=== PATIENT | female | born 1960 | race Caucasian/White ===

== ENCOUNTER 2016-06-04 08:46 | Outpatient (CLI) | payer OTHER ==
[~2016-06-04 08:46] MED LIST changes: +diphenhydrAMINE 25 MG CAP PO SCH
[2016-06-04] MEDS ORDERED: inFLIXimab INJECTION 600 MG in NS 190 ML IV ONE (09:00)
[2016-06-04] MEDS ORDERED: NS 1,000 ML IV SCH (09:00)
== END 2016-06-04 11:45 | disposition home or self-care (01) ==
LOC: M INFU 08:46
PROVIDERS: ATTEND Internal Medicine Gastroenterology
DX: K51.90 Ulcerative colitis, unspecified, without complications (principal); I10 Essential (primary) hypertension; E78.5 Hyperlipidemia, unspecified; E07.9 Disorder of thyroid, unspecified; M19.90 Unspecified osteoarthritis, unspecified site; Z79.82 Long term (current) use of aspirin; Z88.0 Allergy status to penicillin; Z91.013 Allergy to seafood; Z91.010 Allergy to peanuts; Z79.899 Other long term (current) drug therapy; Z87.891 Personal history of nicotine dependence
CPT/HCPCS: 96413; 96415; J1745

== ENCOUNTER → 2016-06-04 | Outpatient (CLI) | payer OTHER ==
[~2016-06-04] MED LIST: /MIRT15TA OR; ASPI81TA45 OR; HYOSCYAMINE PO; LISI10TA2 PO; PROCTOFOAM HC; SIMV40TA2 OR; SYNT175T OR; ZOLO100T OR; lialda PO
--- NOTE | 2016-06-04 15:16 | REPMRS ---
Patient History The patient states she has not had a clinical breast exam in over a year. Patient is postmenopausal. No known family history of cancer. Took hormonal contraceptives for 6 months. Digital Woman Screen Mammo: June 04, 2016 - Exam #: [id number] Bilateral CC and MLO view(s) were taken. Technologist: Aurora Bishop, Technologist Prior study comparison: October 18, 2014, digital woman screen mammo performed at [facility]. August 19, 2013, bilateral bilat screen digital mammo, performed at [facility] FINDINGS: There are scattered fibroglandular densities. There has been no change in the appearance of the mammogram from the prior studies. There is a mild amount of residual fibroglandular tissue which is fairly symmetric. There is no interval development of dominant mass, architectural distortion, or clustered microcalcification suggestive of malignancy. ASSESSMENT: BI-RADS/ACR category 1 mammogram. Negative. Recommendation Routine screening mammogram in 1 year (for women over age 40). This mammogram was interpreted with the aid of an FDA-approved computer-aided dectection system. Electronically Signed By: Oscar Baird MD 06/04/16 2288
== END ==
LOC: M WHC 14:28
PROVIDERS: ATTEND Internal Medicine
DX: Z12.39 Encounter for other screening for malignant neoplasm of breast (principal); Z78.0 Asymptomatic menopausal state

== ENCOUNTER 2016-07-30 09:08 | Outpatient (CLI) | payer OTHER ==
[~2016-07-30] VITALS: Ht 154.9 cm; Wt 106.6 kg
[2016-07-30] MEDS ORDERED: inFLIXimab INJECTION 600 MG in NS 190 ML IV ONE (10:00)
[2016-07-30] MEDS ORDERED: NS 1,000 ML IV SCH (10:00)
== END 2016-07-30 12:10 | disposition home or self-care (01) ==
LOC: M INFU 09:08
PROVIDERS: ATTEND Internal Medicine Gastroenterology
DX: K51.90 Ulcerative colitis, unspecified, without complications (principal); I10 Essential (primary) hypertension; E78.5 Hyperlipidemia, unspecified; Z88.0 Allergy status to penicillin; Z91.018 Allergy to other foods; Z91.013 Allergy to seafood; Z87.891 Personal history of nicotine dependence; Z79.899 Other long term (current) drug therapy; E07.9 Disorder of thyroid, unspecified; Z79.82 Long term (current) use of aspirin
CPT/HCPCS: 96413; 96415; J1745

== ENCOUNTER → 2016-08-20 | Outpatient (REF) | payer OTHER ==
[~2016-08-20] MED LIST changes: -diphenhydrAMINE 25 MG CAP PO SCH
== END ==
LOC: M SFHCPLAZ 15:04
PROVIDERS: ATTEND Internal Medicine
DX: J02.8 Acute pharyngitis due to other specified organisms (principal)

== ENCOUNTER 2016-09-24 09:01 | Outpatient (CLI) | payer OTHER ==
[~2016-09-24] VITALS: Ht 154.9 cm; Wt 106.6 kg
[~2016-09-24 09:01] MED LIST changes: +diphenhydrAMINE 25 MG CAP PO SCH
[2016-09-24] MEDS ORDERED: NS 1,000 ML IV SCH (09:15)
[2016-09-24] MEDS ORDERED: inFLIXimab INJECTION 600 MG in NS 190 ML IV ONE (09:15)
[2016-09-24 09:33] LABS: MEAN CORPUSCULAR HEMOGLOBIN 29.7 pg (27.0-33.0); MEAN CORPUSCULAR HGB CONC 33.9 g/dl (32.0-36.5); MEAN CORPUSCULAR VOLUME 87.5 fl (80.0-96.0); RED CELL DISTRIBUTION WIDTH 13.2 % (11.5-14.5); WHITE BLOOD COUNT 5.5 K/mm3 (4.0-10.0)
[2016-09-24 10:37] LABS: ALBUMIN 3.7 GM/DL (3.2-5.2); ALKALINE PHOSPHATASE 90 U/L (45-117); ALT/SGPT 27 U/L (12-78); ANION GAP 6 MEQ/L (8-16); AST/SGOT 22 U/L (15-37); BILIRUBIN,TOTAL 0.4 MG/DL (0.2-1.0); BLOOD UREA NITROGEN 17 MG/DL (7-18); CALCIUM LEVEL 8.9 MG/DL (8.5-10.1); CARBON DIOXIDE LEVEL 30 MEQ/L (21-32); CHLORIDE LEVEL 105 MEQ/L (98-107); CHOLESTEROL LEVEL 172 MG/DL (<200); CREATININE FOR GFR 0.78 MG/DL (0.55-1.02); GLOMERULAR FILTRATION RATE > 60.0 (>51); GLUCOSE, FASTING 97 MG/DL (70-105); POTASSIUM SERUM 3.9 MEQ/L (3.5-5.1); SODIUM LEVEL 141 MEQ/L (136-145); TOTAL PROTEIN 7.4 GM/DL (6.4-8.2); TRIGLYCERIDES LEVEL 135 MG/DL (<150)
== END 2016-09-24 11:45 | disposition home or self-care (01) ==
LOC: M INFU 09:01
PROVIDERS: ATTEND Internal Medicine Gastroenterology
DX: K51.90 Ulcerative colitis, unspecified, without complications (principal); E78.00 Pure hypercholesterolemia, unspecified; E03.9 Hypothyroidism, unspecified; M06.9 Rheumatoid arthritis, unspecified; F32.9 Major depressive disorder, single episode, unspecified; Z87.891 Personal history of nicotine dependence; Z88.0 Allergy status to penicillin; Z91.013 Allergy to seafood; Z91.018 Allergy to other foods; Z79.899 Other long term (current) drug therapy; Z79.82 Long term (current) use of aspirin; Z80.0 Family history of malignant neoplasm of digestive organs
CPT/HCPCS: 36415; 80053; 80061; 84443; 85027; 96413; 96415; J1745

== ENCOUNTER 2016-11-19 08:56 | Outpatient (CLI) | payer OTHER ==
[~2016-11-19] VITALS: Ht 154.9 cm; Wt 105.7 kg
[2016-11-19] MEDS ORDERED: inFLIXimab INJECTION 600 MG in NS 190 ML IV ONE (09:15)
[2016-11-19] MEDS ORDERED: NS 1,000 ML IV SCH (09:15)
[2016-11-22] MEDS ORDERED: MIRT30TA3 PO (13:40)
[2016-11-22] MEDS ORDERED: ATOR80TA59 PO (13:40)
[2016-11-22] MEDS ORDERED: SERT-138 PO (13:40)
[2016-11-22] MEDS ORDERED: SYNT175T2 PO (13:40)
[2016-11-22] MEDS ORDERED: ASPI1TAB PO (13:40)
[2016-11-22] MEDS ORDERED: FURO20TA2 PO (13:40)
[2016-11-22] MEDS ORDERED: INFL10VL IV (13:40)
[2016-11-22] MEDS ORDERED: MULT1TAB10 PO (13:46)
[2016-11-22] MEDS ORDERED: LISI20TA3 PO (13:46)
== END 2016-11-19 12:00 | disposition home or self-care (01) ==
LOC: M INFU 08:56
PROVIDERS: ATTEND Internal Medicine Gastroenterology
DX: K51.90 Ulcerative colitis, unspecified, without complications (principal); Z87.891 Personal history of nicotine dependence; Z88.0 Allergy status to penicillin; Z91.013 Allergy to seafood; Z91.018 Allergy to other foods; Z79.82 Long term (current) use of aspirin; Z79.899 Other long term (current) drug therapy
CPT/HCPCS: 96413; 96415; J1745

== ENCOUNTER 2016-11-23 12:19 | Outpatient (CLI) | payer OTHER ==
[~2016-11-23] VITALS: Ht 154.9 cm; Wt 90.7 kg
[~2016-11-23 12:19] MED LIST changes: +ASPI1TAB PO; +ATOR80TA59 PO; +FURO20TA2 PO; +INFL10VL IV; +LISI20TA3 PO; +MIRT30TA3 PO; +MULT1TAB10 PO; +NS 1,000 ML IV SCH; +SERT-138 PO; +SYNT175T2 PO; -diphenhydrAMINE 25 MG CAP PO SCH
[2016-11-23] MEDS ORDERED: LIDOCAINE 2% INJ 100 MG/5 ML SDV (FOR ANES.) As Ordered ONE (13:32)
[2016-11-23] MEDS ORDERED: PROPOFOL 200 MG/20 ML VIAL As Ordered ONE (13:32)
[2016-11-23] MEDS ORDERED: fentaNYL 100 MCG/2 ML INJECTION (J3010) As Ordered ONE (13:33)
--- NOTE | 2016-11-23 13:44 | ROOR ---
Patient Name: Dorene Greene Procedure Date: 11/23/2016 1:33 PM Date of : 1960 Age: 56 Room: [facility] Gender: Female Note Status: Finalized Procedure: Upper GI endoscopy Indications: Dysphagia, Heartburn Providers: Andrea JOSHUA MD Referring MD: Adrian Kemp MD Requesting Provider: Medicines: Monitored Anesthesia Care Complications: No immediate complications. Procedure: Pre-Anesthesia Assessment: - The heart rate, respiratory rate, oxygen saturations, blood pressure, adequacy of pulmonary ventilation, and response to care were monitored throughout the procedure. The Endoscope was introduced through the mouth, and advanced to the second part of duodenum. The upper GI endoscopy was accomplished without difficulty. The patient tolerated the procedure well. Findings: Very small (insignificant) Hiatal Hernia. The esophagus was normal. The stomach was normal. The examined duodenum was normal. Impression: - Very small (insignificant) Hiatal Hernia. - Normal esophagus. - Normal stomach. - Normal examined duodenum. - No specimens collected. Recommendation: - Follow an antireflux regimen. - Your difficult swallowing may well be related to acid reflux. Consider trial on reflux medications. Let us know. Andrea Joshua MD Andrea JOSHUA MD 11/23/2016 1:44:18 PM This report has been signed electronically. Number of Addenda: 0 Note Initiated On: 11/23/2016 1:33 PM Estimated Blood Loss: Estimated blood loss: none.
--- NOTE | 2016-11-23 14:07 | ROOR ---
Patient Name: Dorene Greene Procedure Date: 11/23/2016 1:34 PM Date of : 1960 Age: 56 Room: [facility] Gender: Female Note Status: Finalized Procedure: Colonoscopy Indications: High risk colon cancer surveillance: Ulcerative left sided colitis Providers: Andrea JOSHUA MD Referring MD: Adrian Kemp MD Requesting Provider: Medicines: Monitored Anesthesia Care Complications: No immediate complications. Procedure: Pre-Anesthesia Assessment: - The heart rate, respiratory rate, oxygen saturations, blood pressure, adequacy of pulmonary ventilation, and response to care were monitored throughout the procedure. The Colonoscope was introduced through the anus and advanced to the cecum, identified by appendiceal orifice and ileocecal valve. The colonoscopy was performed without difficulty. The patient tolerated the procedure well. The quality of the bowel preparation was good. Findings: The perianal and digital rectal examinations were normal. The entire examined colon appeared normal on direct and retroflexion views. Four biopsies were taken every 10 cm with a cold forceps from the entire colon for dysplasia surveillance and ulcerative colitis surveillance. These biopsy specimens were sent to Pathology. Impression: - The entire examined colon is normal on direct and retroflexion views. - Biopsies for surveillance were taken from the entire colon. - No active ulcerative colitis is seen. Recommendation: - Telephone endoscopist for pathology results in 2 weeks. - Continue present medications. Andrea Joshua MD Andrea JOSHUA MD 11/23/2016 2:07:17 PM This report has been signed electronically. Number of Addenda: 0 Note Initiated On: 11/23/2016 1:34 PM Estimated Blood Loss: Estimated blood loss: none.
[2016-11-23 14:20] VITALS: BP 144/88
== END 2016-11-23 14:35 | disposition home or self-care (01) ==
LOC: M OPP 12:19
PROVIDERS: ATTEND Internal Medicine Gastroenterology
DX: Z12.11 Encounter for screening for malignant neoplasm of colon (principal); K51.50 Left sided colitis without complications; R13.10 Dysphagia, unspecified; R12 Heartburn; K44.9 Diaphragmatic hernia without obstruction or gangrene; I10 Essential (primary) hypertension; E78.00 Pure hypercholesterolemia, unspecified; E03.9 Hypothyroidism, unspecified; M06.9 Rheumatoid arthritis, unspecified; K51.00 Ulcerative (chronic) pancolitis without complications; F41.9 Anxiety disorder, unspecified; F32.9 Major depressive disorder, single episode, unspecified; R06.83 Snoring; Z87.891 Personal history of nicotine dependence; Z88.0 Allergy status to penicillin; Z91.013 Allergy to seafood; Z91.010 Allergy to peanuts; Z79.82 Long term (current) use of aspirin; Z79.899 Other long term (current) drug therapy
CPT/HCPCS: 43235; 45380; 88305; J3010

== ENCOUNTER 2017-01-07 08:51 | Outpatient (CLI) | payer OTHER ==
[~2017-01-07 08:51] MED LIST changes: -NS 1,000 ML IV SCH
[2017-01-07] MEDS ORDERED: diphenhydrAMINE 25 MG CAP PO ONE (09:15)
[2017-01-07] MEDS ORDERED: NS 1,000 ML IV SCH (09:15)
[2017-01-07] MEDS ORDERED: inFLIXimab INJECTION 600 MG in NS 190 ML IV ONE (09:30)
== END 2017-01-07 11:45 | disposition home or self-care (01) ==
LOC: M INFU 08:51
PROVIDERS: ATTEND Internal Medicine Gastroenterology
DX: K51.90 Ulcerative colitis, unspecified, without complications (principal); Z87.891 Personal history of nicotine dependence; Z88.0 Allergy status to penicillin; Z91.010 Allergy to peanuts; Z91.013 Allergy to seafood; Z79.82 Long term (current) use of aspirin; Z79.899 Other long term (current) drug therapy
CPT/HCPCS: 96413; 96415; J1745

== ENCOUNTER 2017-03-04 08:44 | Outpatient (CLI) | payer OTHER ==
[~2017-03-04] VITALS: Ht 154.9 cm; Wt 110.0 kg
[2017-03-04] MEDS ORDERED: inFLIXimab INJECTION 600 MG in NS 190 ML IV ONE (09:00)
[2017-03-04] MEDS ORDERED: NS 1,000 ML IV SCH (09:00)
[2017-03-04] MEDS ORDERED: diphenhydrAMINE 25 MG CAP PO ONE (09:00)
== END 2017-03-04 12:05 | disposition home or self-care (01) ==
LOC: M INFU 08:44
PROVIDERS: ATTEND Internal Medicine Gastroenterology
DX: K51.90 Ulcerative colitis, unspecified, without complications (principal); Z79.82 Long term (current) use of aspirin; Z79.899 Other long term (current) drug therapy; Z88.0 Allergy status to penicillin; Z91.013 Allergy to seafood; Z91.010 Allergy to peanuts
CPT/HCPCS: 96413; 96415; J1745

== ENCOUNTER 2017-06-24 12:10 | Outpatient (CLI) | payer OTHER ==
[2017-06-24] MEDS: ACETAMINOPHEN TAB 650MG DOSE (2X325MG) PO (09:15)
[2017-06-24] MEDS: diphenhydrAMINE 25 MG CAP PO (12:25)
[2017-06-24] MEDS: NS 1,000 ML IV (12:26)
[2017-06-24] MEDS: INFLIXIMAB BIOSIMILAR 600 MG in NS 190 ML IV (12:33)
== END 2017-06-24 14:50 | disposition home or self-care (01) ==
LOC: M INFU 12:10
DX: K51.919 Ulcerative colitis, unspecified with unspecified complications (principal); Z79.82 Long term (current) use of aspirin; Z79.899 Other long term (current) drug therapy; Z88.0 Allergy status to penicillin; Z91.013 Allergy to seafood; Z91.010 Allergy to peanuts; Z87.891 Personal history of nicotine dependence
CPT/HCPCS: Q5102

== ENCOUNTER → 2017-08-14 | Outpatient (CLI) | payer OTHER | LOC: M WHC 10:44 | DX: Z12.31 Encounter for screening mammogram for malignant neoplasm of breast (principal) | CPT/HCPCS: 77067 ==

== ENCOUNTER 2017-08-19 11:25 | Outpatient (CLI) | payer OTHER ==
[2017-08-19] MEDS: ACETAMINOPHEN 650 MG PO PO (11:45)
[2017-08-19] MEDS: FILTER 1.2 MICRON (ADULT TPN/MANNITOL/REMICADE) XX (11:45)
[2017-08-19] MEDS: diphenhydrAMINE 25 MG CAP PO (11:54)
[2017-08-19] MEDS: NS 1,000 ML IV (12:16)
[2017-08-19] MEDS: inFLIXimab INJECTION 600 MG in NS 190 ML IV (12:17)
== END 2017-08-19 14:45 | disposition home or self-care (01) ==
LOC: M INFU 11:25
DX: K51.90 Ulcerative colitis, unspecified, without complications (principal); Z88.2 Allergy status to sulfonamides; Z91.013 Allergy to seafood; Z91.010 Allergy to peanuts; Z79.82 Long term (current) use of aspirin; Z79.899 Other long term (current) drug therapy
CPT/HCPCS: J1745

== ENCOUNTER 2017-10-14 12:36 | Outpatient (CLI) | payer OTHER ==
[2017-10-14] MEDS: ACETAMINOPHEN TAB 650MG DOSE (2X325MG) PO (13:00)
[2017-10-14] MEDS: FILTER 1.2 MICRON (ADULT TPN/MANNITOL/REMICADE) XX (13:00)
[2017-10-14] MEDS: diphenhydrAMINE 25 MG CAP PO (13:24)
[2017-10-14] MEDS: NS 1,000 ML IV (13:25)
[2017-10-14] MEDS: inFLIXimab INJECTION 600 MG in NS 190 ML IV (13:26)
[2017-10-14 14:27] LABS: HEMATOCRIT 36.8 % (36.0-47.0); HEMOGLOBIN 12.5 g/dl (12.0-15.5); MEAN CORPUSCULAR HEMOGLOBIN 29.5 pg (27.0-33.0); MEAN CORPUSCULAR VOLUME 86.8 fl (80.0-96.0); PLATELET COUNT, AUTOMATED 312 10^3/uL (150-450); RED BLOOD COUNT 4.24 10^6/uL (4.00-5.40); RED CELL DISTRIBUTION WIDTH 12.7 % (11.5-14.5); WHITE BLOOD COUNT 5.3 10^3/uL (4.0-10.0)
[2017-10-14 15:51] LABS: ALBUMIN 3.9 GM/DL (3.2-5.2); ALBUMIN/GLOBULIN RATIO 1.05 (1.00-1.93); ALKALINE PHOSPHATASE 95 U/L (45-117); ALT/SGPT 29 U/L (12-78); ANION GAP 9 MEQ/L (8-16); AST/SGOT 23 U/L (7-37); BILIRUBIN,TOTAL 0.5 MG/DL (0.2-1.0); BLOOD UREA NITROGEN 15 MG/DL (7-18); CALCIUM LEVEL 8.9 MG/DL (8.5-10.1); CARBON DIOXIDE LEVEL 29 MEQ/L (21-32); CHLORIDE LEVEL 104 MEQ/L (98-107); CHOLESTEROL LEVEL 178 MG/DL (<200); CHOLESTEROL RISK RATIO 3.708 (<5); CREATININE FOR GFR 0.61 MG/DL (0.55-1.30); GLOMERULAR FILTRATION RATE > 60.0 (>51); GLUCOSE, FASTING 79 MG/DL (70-100); HDL CHOLESTEROL 48 MG/DL (>40); LDL CHOLESTEROL 99.6 MG/DL (<100); MAGNESIUM LEVEL 2.1 MG/DL (1.8-2.4); NON-HDL-C 130 MG/DL; POTASSIUM SERUM 3.8 MEQ/L (3.5-5.1); SODIUM LEVEL 142 MEQ/L (136-145); TOTAL PROTEIN 7.6 GM/DL (6.4-8.2); TRIGLYCERIDES LEVEL 152 MG/DL (<150)
== END 2017-10-14 16:15 ==
LOC: M INFU 12:36
DX: K51.90 Ulcerative colitis, unspecified, without complications (principal); E78.00 Pure hypercholesterolemia, unspecified; I10 Essential (primary) hypertension; E03.9 Hypothyroidism, unspecified; Z79.899 Other long term (current) drug therapy; Z79.82 Long term (current) use of aspirin; Z88.0 Allergy status to penicillin; Z91.018 Allergy to other foods; Z91.013 Allergy to seafood
CPT/HCPCS: J1745

== ENCOUNTER 2017-12-09 09:21 | Outpatient (CLI) | payer OTHER ==
[2017-12-09] MEDS: FILTER 1.2 MICRON (ADULT TPN/MANNITOL/REMICADE) XX (10:00)
[2017-12-09] MEDS: ACETAMINOPHEN TAB 650MG DOSE (2X325MG) PO (10:00)
[2017-12-09] MEDS: diphenhydrAMINE 25 MG CAP PO (10:01)
[2017-12-09] MEDS: NS 1,000 ML IV (10:03)
[2017-12-09] MEDS: inFLIXimab INJECTION 600 MG in NS 190 ML IV (10:19)
== END 2017-12-09 12:50 | disposition home or self-care (01) ==
LOC: M INFU 09:21
DX: K51.90 Ulcerative colitis, unspecified, without complications (principal); Z91.018 Allergy to other foods; Z91.013 Allergy to seafood; Z88.0 Allergy status to penicillin; Z79.82 Long term (current) use of aspirin; Z79.899 Other long term (current) drug therapy
CPT/HCPCS: J1745

== ENCOUNTER 2018-02-03 09:22 | Outpatient (CLI) | payer OTHER ==
[2018-02-03] MEDS: diphenhydrAMINE 25 MG CAP PO (09:40)
[2018-02-03] MEDS: ACETAMINOPHEN TAB 650MG DOSE (2X325MG) PO (09:41)
[2018-02-03] MEDS: FILTER 1.2 MICRON (ADULT TPN/MANNITOL/REMICADE) XX (09:41)
[2018-02-03] MEDS ORDERED: NS 1,000 ML IV (09:45)
[2018-02-03] MEDS: inFLIXimab INJECTION 600 MG in NS 190 ML IV (09:55)
== END 2018-02-03 12:20 | disposition home or self-care (01) ==
LOC: M INFU 09:22
DX: K51.90 Ulcerative colitis, unspecified, without complications (principal); Z88.0 Allergy status to penicillin; Z91.018 Allergy to other foods; Z91.010 Allergy to peanuts
CPT/HCPCS: J1745

== ENCOUNTER 2018-03-31 10:49 | Outpatient (CLI) | payer OTHER ==
[2018-03-31] MEDS: ACETAMINOPHEN 650MG PO PRIOR TO INFUSION PO (11:15)
[2018-03-31] MEDS: FILTER 1.2 MICRON (ADULT TPN/MANNITOL/REMICADE) XX (11:15)
[2018-03-31] MEDS: NS 1,000 ML IV (11:15)
[2018-03-31] MEDS: diphenhydrAMINE 25MG PO PRIOR TO INFUSION PO (11:30)
[2018-03-31] MEDS: inFLIXimab INJECTION 600 MG in NS 190 ML IV (11:37)
== END 2018-03-31 13:45 | disposition home or self-care (01) ==
LOC: M INFU 10:49
DX: K51.90 Ulcerative colitis, unspecified, without complications (principal); Z88.0 Allergy status to penicillin; Z91.013 Allergy to seafood; Z91.018 Allergy to other foods
CPT/HCPCS: J1745

== ENCOUNTER 2018-05-26 11:00 | Outpatient (CLI) | payer OTHER ==
[2018-05-26] VITALS (8 sets, daily range): BP systolic 114–135; BP diastolic 54–78
[2018-05-26] MEDS ORDERED: ACETAMINOPHEN 650MG PO PRIOR TO INFUSION PO ONE (12:00)
[2018-05-26] MEDS ORDERED: inFLIXimab INJECTION 600 MG in NS 190 ML IV ONE (12:00)
[2018-05-26] MEDS ORDERED: NS 1,000 ML IV SCH (12:00)
[2018-05-26] MEDS ORDERED: FILTER 1.2 MICRON (ADULT TPN/MANNITOL/REMICADE) XX ONE (12:00)
[2018-05-26] MEDS ORDERED: diphenhydrAMINE 25MG PO PRIOR TO INFUSION PO ONE (12:00)
== END 2018-05-26 14:25 | disposition home or self-care (01) ==
LOC: M INFU 11:00
PROVIDERS: ATTEND Internal Medicine Gastroenterology
DX: K51.50 Left sided colitis without complications (principal); Z88.1 Allergy status to other antibiotic agents; Z91.013 Allergy to seafood; Z91.010 Allergy to peanuts
CPT/HCPCS: 36415; 86480; 87340; 96413; 96415; J1745

== ENCOUNTER 2018-07-21 07:52 | Outpatient (CLI) | payer OTHER ==
[~2018-07-21 07:52] MED LIST changes: -/MIRT15TA OR; -ASPI1TAB PO; +ASPI81TA26 PO; +MIRT1TAB20 OR
[2018-07-21 07:55] VITALS: BP 154/67
[2018-07-21] MEDS ORDERED: NS 1,000 ML IV SCH (08:00)
[2018-07-21] MEDS ORDERED: FILTER 1.2 MICRON (ADULT TPN/MANNITOL/REMICADE) XX ONE (08:00)
[2018-07-21] MEDS ORDERED: diphenhydrAMINE 25MG PO PRIOR TO INFUSION PO ONE (08:00)
[2018-07-21] MEDS ORDERED: ACETAMINOPHEN 650MG PO PRIOR TO INFUSION PO ONE (08:00)
[2018-07-21] MEDS ORDERED: inFLIXimab INJECTION 600 MG in NS 190 ML IV ONE (09:00)
[2018-07-21 09:45] VITALS: BP 121/60
== END 2018-07-21 09:45 | disposition home or self-care (01) ==
LOC: M INFU 07:52
PROVIDERS: ATTEND Internal Medicine Gastroenterology
DX: K51.90 Ulcerative colitis, unspecified, without complications (principal); Z91.018 Allergy to other foods; Z91.013 Allergy to seafood; Z88.0 Allergy status to penicillin; Z79.82 Long term (current) use of aspirin; Z79.899 Other long term (current) drug therapy
CPT/HCPCS: 96413; J1745

== ENCOUNTER 2018-09-16 07:57 | Outpatient (CLI) | payer OTHER ==
[~2018-09-16] VITALS: Ht 157.5 cm; Wt 104.8 kg
[2018-09-16 08:18] VITALS: BP 120/62
[2018-09-16] MEDS ORDERED: ACETAMINOPHEN 650MG PO PRIOR TO INFUSION PO ONE (09:00)
[2018-09-16] MEDS ORDERED: diphenhydrAMINE 25MG PO PRIOR TO INFUSION PO ONE (09:00)
[2018-09-16] MEDS ORDERED: inFLIXimab INJECTION 600 MG in NS 190 ML IV ONE (09:00)
[2018-09-16] MEDS ORDERED: NS 1,000 ML IV SCH (09:00)
[2018-09-16] MEDS ORDERED: FILTER 1.2 MICRON (ADULT TPN/MANNITOL/REMICADE) XX ONE (09:00)
[2018-09-16 11:20] VITALS: BP 109/56
== END 2018-09-16 11:20 | disposition home or self-care (01) ==
LOC: M INFU 07:57
PROVIDERS: ATTEND Internal Medicine Gastroenterology
DX: K51.90 Ulcerative colitis, unspecified, without complications (principal); Z88.0 Allergy status to penicillin; Z91.013 Allergy to seafood; Z91.018 Allergy to other foods
CPT/HCPCS: 96413; 96415; J1745

== ENCOUNTER 2018-11-17 07:57 | Outpatient (CLI) | payer OTHER ==
[~2018-11-17] VITALS: Ht 154.9 cm; Wt 104.8 kg
[2018-11-17] MEDS ORDERED: ACETAMINOPHEN 650MG PO PRIOR TO INFUSION PO ONE (08:15)
[2018-11-17] MEDS ORDERED: FILTER 1.2 MICRON (ADULT TPN/MANNITOL/REMICADE) XX ONE (08:15)
[2018-11-17] MEDS ORDERED: diphenhydrAMINE 25MG PO PRIOR TO INFUSION PO ONE (08:15)
[2018-11-17] MEDS ORDERED: NS 1,000 ML IV SCH (08:15)
[2018-11-17] MEDS ORDERED: inFLIXimab INJECTION 600 MG in NS 190 ML IV ONE (08:30)
[2018-11-17 08:45] VITALS: BP 126/70
[2018-11-17 09:55] VITALS: BP 119/59
[2018-11-17 10:30] VITALS: BP 111/62
== END 2018-11-17 10:30 | disposition home or self-care (01) ==
LOC: M INFU 07:57
PROVIDERS: ATTEND Physician Assistant Medical
DX: K51.90 Ulcerative colitis, unspecified, without complications (principal); Z88.0 Allergy status to penicillin; Z91.013 Allergy to seafood; Z91.010 Allergy to peanuts
CPT/HCPCS: 36415; 96413; J1745

== ENCOUNTER → 2018-11-17 | Outpatient (CLI) | payer OTHER ==
[2018-11-17 08:47] LABS: HEMATOCRIT 37.4 % (36.0-47.0); HEMOGLOBIN 12.4 g/dl (12.0-15.5); MEAN CORPUSCULAR HGB CONC 33.2 g/dl (32.0-36.5); MEAN CORPUSCULAR VOLUME 90.3 fl (80.0-96.0); PLATELET COUNT, AUTOMATED 261 10^3/uL (150-450); RED BLOOD COUNT 4.14 10^6/uL (4.00-5.40); WHITE BLOOD COUNT 5.7 10^3/uL (4.0-10.0)
[2018-11-17 09:23] LABS: ALBUMIN 3.6 GM/DL (3.2-5.2); ALT/SGPT 49 U/L (12-78); BILIRUBIN,TOTAL 0.4 MG/DL (0.2-1.0); BLOOD UREA NITROGEN 17 MG/DL (7-18); CARBON DIOXIDE LEVEL 30 MEQ/L (21-32); CHLORIDE LEVEL 104 MEQ/L (98-107); CREATININE FOR GFR 0.69 MG/DL (0.55-1.30); GLOMERULAR FILTRATION RATE > 60.0 (>51); GLUCOSE, FASTING 107 MG/DL (70-100); LIPASE 187 U/L (73-393); MAGNESIUM LEVEL 2.2 MG/DL (1.8-2.4); POTASSIUM SERUM 3.7 MEQ/L (3.5-5.1); SODIUM LEVEL 140 MEQ/L (136-145); TOTAL PROTEIN 7.3 GM/DL (6.4-8.2)
== END ==
LOC: M LAB 08:03
PROVIDERS: ATTEND Internal Medicine
DX: K51.90 Ulcerative colitis, unspecified, without complications (principal); I10 Essential (primary) hypertension; E03.9 Hypothyroidism, unspecified; E78.00 Pure hypercholesterolemia, unspecified

== ENCOUNTER → 2018-12-09 | Outpatient (CLI) | payer OTHER ==
[~2018-12-09] MED LIST changes: +LISI10TA15 PO; -LISI10TA2 PO; +LISI20TA20 PO; -LISI20TA3 PO
--- NOTE | 2018-12-09 18:54 | REPMRS ---
Patient History The patient states she has not had a clinical breast exam in over a year. No known family history of cancer. Took hormonal contraceptives for 6 months. 3D TOMOSYNTHESIS WAS PERFORMED. [facility] for [facility]%. Digital Woman Screen Mammo: December 09, 2018 - Exam #: [id number] Bilateral CC and MLO view(s) were taken. Technologist: Santa Conklin, Technologist Prior study comparison: August 14, 2017, digital woman screen mammo performed at [facility]. June 04, 2016, digital woman screen mammo performed at [facility] [email or web address] [facility]. FINDINGS: There are scattered fibroglandular densities. There has been no change in the appearance of the mammogram from the prior studies. There is a mild amount of residual fibroglandular tissue which is fairly symmetric. There is no interval development of dominant mass, architectural distortion, or clustered microcalcification suggestive of malignancy. Assessment: BI-RADS/ACR category 1 mammogram. Negative Mammogram. Recommendation Routine screening mammogram in 1 year (for women over age 40). This mammogram was interpreted with the aid of an FDA-approved computer-aided dectection system. Electronically Signed By: Oscar Baird MD 12/09/18 2196
== END ==
LOC: M WHC 16:15
PROVIDERS: ATTEND Internal Medicine
DX: Z12.31 Encounter for screening mammogram for malignant neoplasm of breast (principal)

== ENCOUNTER 2019-01-12 08:54 | Outpatient (CLI) | payer OTHER ==
[~2019-01-12] VITALS: Ht 154.9 cm; Wt 104.8 kg
[2019-01-12 08:55] VITALS: BP 116/73
[2019-01-12 09:50] VITALS: BP 123/69
[2019-01-12] MEDS ORDERED: NS 1,000 ML IV SCH (10:00)
[2019-01-12] MEDS ORDERED: ACETAMINOPHEN 650MG PO PRIOR TO INFUSION PO ONE (10:00)
[2019-01-12] MEDS ORDERED: FILTER 1.2 MICRON (ADULT TPN/MANNITOL/REMICADE) XX ONE (10:00)
[2019-01-12] MEDS ORDERED: diphenhydrAMINE 25MG PO PRIOR TO INFUSION PO ONE (10:00)
[2019-01-12] MEDS ORDERED: inFLIXimab INJECTION 600 MG in NS 190 ML IV ONE (10:00)
== END 2019-01-12 11:10 | disposition home or self-care (01) ==
LOC: M INFU 08:54
PROVIDERS: ATTEND Internal Medicine Gastroenterology
DX: K51.90 Ulcerative colitis, unspecified, without complications (principal)
CPT/HCPCS: 96413; J1745

== ENCOUNTER 2019-02-19 11:43 | Day surgery (SDC) | payer OTHER ==
[~2019-02-19] VITALS: Ht 154.9 cm; Wt 101.2 kg
[~2019-02-19 11:43] MED LIST changes: +NS 1,000 ML IV SCH
[2019-02-19] MEDS ORDERED: LIDOCAINE 2% INJ 100 MG/5 ML SDV (FOR ANES.) As Ordered ONE (13:34)
[2019-02-19] MEDS ORDERED: PROPOFOL 200 MG/20 ML VIAL As Ordered ONE (13:34)
--- NOTE | 2019-02-19 14:53 | ROOR ---
Patient Name: Dorene Greene Procedure Date: 02/19/2019 2:27 PM Date of : 1960 Age: 58 Room: [facility] Gender: Female Note Status: Finalized Procedure: Upper GI endoscopy Indications: Suspected esophageal reflux, Chronic cough Providers: Andrea JOSHUA MD Referring MD: Adrian Kemp MD Requesting Provider: Medicines: Monitored Anesthesia Care Complications: No immediate complications. Procedure: Pre-Anesthesia Assessment: - The heart rate, respiratory rate, oxygen saturations, blood pressure, adequacy of pulmonary ventilation, and response to care were monitored throughout the procedure. The Endoscope was introduced through the mouth, and advanced to the second part of duodenum. The upper GI endoscopy was accomplished without difficulty. The patient tolerated the procedure well. Findings: The examined esophagus was normal. Patchy mild inflammation characterized by erythema and linear erosions was found in the gastric body. Biopsies were taken with a cold forceps for histology. Very small (insignificant) Hiatal Hernia. The exam of the stomach was otherwise normal. The examined duodenum was normal. Impression: - Normal esophagus. - A few shallow linear erosions/gastritis in body of stomach. Biopsied. - Very small (insignificant) Hiatal Hernia. - The stomach is otherwise normal. - Normal examined duodenum. Recommendation: - Avoid/reduce NSAIDS (ibuprofen,motrin,naprosyn etc). Tylenol is OK to use - Use Prilosec (omeprazole) 40 mg PO daily for gastritis and cough. - (the script was sent to your pharmacy on file) - Telephone endoscopist for pathology results in 2 weeks. Andrea Joshua MD Andrea JOSHUA MD 02/19/2019 2:53:39 PM Electronically signed by Andrea JOSHUA MD Number of Addenda: 0 Note Initiated On: 02/19/2019 2:27 PM Estimated Blood Loss: Estimated blood loss: none.
--- NOTE | 2019-02-19 14:58 | ROOR ---
Patient Name: Dorene Greene Procedure Date: 02/19/2019 2:28 PM Date of : 1960 Age: 58 Room: [facility] Gender: Female Note Status: Finalized Procedure: Colonoscopy Indications: High risk colon cancer surveillance: Ulcerative left sided colitis of 15 (or more) years duration Providers: Andrea JOSHUA MD Referring MD: Adrian Kemp MD Requesting Provider: Medicines: Monitored Anesthesia Care Complications: No immediate complications. Procedure: Pre-Anesthesia Assessment: - The heart rate, respiratory rate, oxygen saturations, blood pressure, adequacy of pulmonary ventilation, and response to care were monitored throughout the procedure. The Colonoscope was introduced through the anus and advanced to the cecum, identified by appendiceal orifice and ileocecal valve. The colonoscopy was somewhat difficult due to unsatisfactory bowel prep. Successful completion of the procedure was aided by lavage. The patient tolerated the procedure well. The quality of the bowel preparation was adequate and fair. Findings: The perianal and digital rectal examinations were normal. (EXAM: Complete, PREP: Suboptimal) The entire examined colon appeared normal on direct and retroflexion views. Small Internal Hemorrhoids. Biopsies were taken with a cold forceps in the rectum, in the sigmoid colon, in the descending colon, in the transverse colon and in the ascending colon for histology. Impression: - (EXAM: Complete, PREP: Suboptimal) - The entire examined colon is normal on direct and retroflexion views. - Small Internal Hemorrhoids. - Biopsies were taken with a cold forceps for histology in the rectum, in the sigmoid colon, in the descending colon, in the transverse colon and in the ascending colon. Recommendation: - Repeat colonoscopy in 1 year for surveillance. - Repeat colonoscopy in 1 year because the bowel preparation was suboptimal. - (Rec alternate colon preparation for next colonoscopy) Andrea Joshua MD Andrea JOSHUA MD 02/19/2019 2:57:26 PM Electronically signed by Andrea JOSHUA MD Number of Addenda: 0 Note Initiated On: 02/19/2019 2:28 PM Estimated Blood Loss: Estimated blood loss: none.
[2019-02-19 15:20] VITALS: BP 136/80
== END 2019-02-19 15:33 | disposition home or self-care (01) ==
LOC: M OPP 11:43
PROVIDERS: ATTEND Internal Medicine Gastroenterology
DX: K51.50 Left sided colitis without complications (principal); K29.70 Gastritis, unspecified, without bleeding; R05 Cough; K64.9 Unspecified hemorrhoids; Z79.2 Long term (current) use of antibiotics; Z79.899 Other long term (current) drug therapy; Z88.0 Allergy status to penicillin; Z91.013 Allergy to seafood; Z91.018 Allergy to other foods

== ENCOUNTER 2019-03-09 07:51 | Outpatient (CLI) | payer OTHER ==
[~2019-03-09] VITALS: Ht 154.9 cm; Wt 104.8 kg
[~2019-03-09 07:51] MED LIST changes: -NS 1,000 ML IV SCH
[2019-03-09 08:00] VITALS: BP 129/75
[2019-03-09] MEDS ORDERED: ACETAMINOPHEN 650MG PO PRIOR TO INFUSION PO ONE (09:00)
[2019-03-09] MEDS ORDERED: NS 1,000 ML IV SCH (09:00)
[2019-03-09] MEDS ORDERED: inFLIXimab INJECTION 600 MG in NS 190 ML IV ONE (09:00)
[2019-03-09] MEDS ORDERED: FILTER 1.2 MICRON (ADULT TPN/MANNITOL/REMICADE) XX ONE (09:00)
[2019-03-09] MEDS ORDERED: diphenhydrAMINE 25MG PO PRIOR TO INFUSION PO ONE (09:00)
[2019-03-09 10:30] VITALS: BP 145/81
== END 2019-03-09 10:30 | disposition home or self-care (01) ==
LOC: M INFU 07:51
PROVIDERS: ATTEND Internal Medicine Gastroenterology
DX: K51.90 Ulcerative colitis, unspecified, without complications (principal); Z88.0 Allergy status to penicillin; Z91.018 Allergy to other foods
CPT/HCPCS: 96413; 96415; J1745

== ENCOUNTER 2019-05-04 08:12 | Outpatient (CLI) | payer OTHER ==
[2019-05-04] VITALS (8 sets, daily range): BP systolic 108–150; BP diastolic 59–84
[~2019-05-04] VITALS: Ht 154.9 cm; Wt 104.0 kg
[2019-05-04] MEDS ORDERED: NS 1,000 ML IV SCH (09:00)
[2019-05-04] MEDS ORDERED: diphenhydrAMINE 25MG PO PRIOR TO INFUSION PO ONE (09:00)
[2019-05-04] MEDS ORDERED: ACETAMINOPHEN 650MG PO PRIOR TO INFUSION PO ONE (09:00)
[2019-05-04] MEDS: inFLIXimab INJECTION 600 MG in NS 190 ML IV ONE ×2 (09:18→09:19)
== END 2019-05-04 11:05 | disposition home or self-care (01) ==
LOC: M INFU 08:12
PROVIDERS: ATTEND Internal Medicine Gastroenterology
DX: K51.90 Ulcerative colitis, unspecified, without complications (principal); Z88.0 Allergy status to penicillin; Z91.018 Allergy to other foods
CPT/HCPCS: 96413; J1745

== ENCOUNTER 2019-06-29 07:47 | Outpatient (CLI) | payer OTHER ==
[~2019-06-29] VITALS: Ht 154.9 cm; Wt 104.0 kg
[2019-06-29] MEDS ORDERED: inFLIXimab INJECTION 600 MG in NS 190 ML IV ONE (09:00)
[2019-06-29] MEDS ORDERED: diphenhydrAMINE 25MG PO PRIOR TO INFUSION PO ONE (09:00)
[2019-06-29] MEDS ORDERED: ACETAMINOPHEN 650MG PO PRIOR TO INFUSION PO ONE (09:00)
[2019-06-29] MEDS ORDERED: NS 1,000 ML IV SCH (09:00)
[2019-06-29 10:14] LABS: HEPATITIS B CORE ANTIBODY IGM NEGATIVE (NEGATIVE); HEPATITIS B SURFACE ANTIBODY NEGATIVE (POSITIVE); HEPATITIS B SURFACE ANTIGEN NEGATIVE (NEGATIVE)
== END 2019-06-29 10:40 | disposition home or self-care (01) ==
LOC: M INFU 07:47
PROVIDERS: ATTEND Internal Medicine Gastroenterology
DX: K51.90 Ulcerative colitis, unspecified, without complications (principal); Z88.0 Allergy status to penicillin; Z91.010 Allergy to peanuts; Z91.013 Allergy to seafood
CPT/HCPCS: 36415; 86480; 86705; 86706; 87340; 96413; 96415; J1745

== ENCOUNTER 2019-08-24 07:53 | Outpatient (CLI) | payer OTHER ==
[~2019-08-24] VITALS: Ht 154.9 cm; Wt 104.0 kg
[2019-08-24 08:00] VITALS: BP 141/72
[2019-08-24] MEDS ORDERED: inFLIXimab INJECTION 600 MG in NS 190 ML IV ONE (08:00)
[2019-08-24] MEDS ORDERED: NS 1,000 ML IV SCH (08:00)
[2019-08-24] MEDS ORDERED: diphenhydrAMINE 25MG PO PRIOR TO INFUSION PO ONE (08:00)
[2019-08-24] MEDS ORDERED: ACETAMINOPHEN 650MG PO PRIOR TO INFUSION PO ONE (08:00)
[2019-08-24 11:00] VITALS: BP 120/68
== END 2019-08-24 11:00 | disposition home or self-care (01) ==
LOC: M INFU 07:53
PROVIDERS: ATTEND Internal Medicine Gastroenterology
DX: K51.90 Ulcerative colitis, unspecified, without complications (principal); Z88.1 Allergy status to other antibiotic agents; Z91.013 Allergy to seafood; Z91.018 Allergy to other foods
CPT/HCPCS: 96413; J1745

== ENCOUNTER 2019-10-19 07:54 | Outpatient (CLI) | payer OTHER ==
[~2019-10-19] VITALS: Ht 154.9 cm; Wt 104.0 kg
[2019-10-19] VITALS (8 sets, daily range): BP systolic 105–132; BP diastolic 58–84
[2019-10-19] MEDS ORDERED: inFLIXimab INJECTION 600 MG in NS 190 ML IV ONE (08:15)
[2019-10-19] MEDS ORDERED: ACETAMINOPHEN 650MG PO PRIOR TO INFUSION PO ONE (08:15)
[2019-10-19] MEDS ORDERED: diphenhydrAMINE 25MG PO PRIOR TO INFUSION PO ONE (08:15)
[2019-10-19] MEDS ORDERED: NS 1,000 ML IV SCH (08:15)
== END 2019-10-19 10:45 | disposition home or self-care (01) ==
LOC: M INFU 07:54
PROVIDERS: ATTEND Internal Medicine Gastroenterology
DX: K51.90 Ulcerative colitis, unspecified, without complications (principal); Z80.0 Family history of malignant neoplasm of digestive organs; Z91.013 Allergy to seafood; Z91.018 Allergy to other foods
CPT/HCPCS: 96413; 96415; J1745

== ENCOUNTER 2019-12-14 07:59 | Outpatient (CLI) | payer OTHER ==
[2019-12-14] VITALS (8 sets, daily range): BP systolic 108–132; BP diastolic 52–84
[~2019-12-14] VITALS: Ht 154.9 cm; Wt 105.7 kg
[2019-12-14] MEDS ORDERED: NS 1,000 ML IV SCH (08:00)
[2019-12-14] MEDS ORDERED: inFLIXimab INJECTION 600 MG in NS 190 ML IV ONE (08:00)
[2019-12-14] MEDS ORDERED: diphenhydrAMINE 25MG PO PRIOR TO INFUSION PO ONE (08:00)
[2019-12-14] MEDS ORDERED: ACETAMINOPHEN 650MG PO PRIOR TO INFUSION PO ONE (08:00)
[2019-12-14] MEDS ORDERED: diphenhydrAMINE 25MG CAP As Ordered ONE (08:16)
== END 2019-12-14 11:05 | disposition home or self-care (01) ==
LOC: EDBD → M INFU 07:59
PROVIDERS: ATTEND Internal Medicine Gastroenterology
DX: K51.90 Ulcerative colitis, unspecified, without complications (principal)
CPT/HCPCS: 96413; 96415; J1745

== ENCOUNTER → 2019-12-14 | Outpatient (CLI) | payer OTHER ==
[2019-12-14 09:03] LABS: BASO # 0.1 10^3/uL (0.0-0.2); EOS # 0.2 10^3/uL (0.0-0.5); EOS % 4.7 % (0.0-3.0); HEMATOCRIT 39.4 % (36.0-47.0); HEMOGLOBIN 13.2 g/dl (12.0-15.5); LYMPH # 1.4 10^3/uL (1.5-5.0); LYMPH % 27.9 % (24.0-44.0); MEAN CORPUSCULAR HEMOGLOBIN 29.9 pg (27.0-33.0); MEAN CORPUSCULAR HGB CONC 33.5 g/dl (32.0-36.5); MEAN CORPUSCULAR VOLUME 89.3 fl (80.0-96.0); MONO # 0.5 10^3/uL (0.0-0.8); MONO % 9.4 % (0.0-5.0); NEUTROPHILS # 2.8 10^3/uL (1.5-8.5); NEUTROPHILS % 56.8 % (36.0-66.0); PLATELET COUNT, AUTOMATED 267 10^3/uL (150-450); RED BLOOD COUNT 4.41 10^6/uL (4.00-5.40); WHITE BLOOD COUNT 4.9 10^3/uL (4.0-10.0)
[2019-12-14 10:15] LABS: ALT/SGPT 36 U/L (12-78); BILIRUBIN,TOTAL 0.5 MG/DL (0.2-1.0); BLOOD UREA NITROGEN 14 MG/DL (7-18); CALCIUM LEVEL 9.1 MG/DL (8.5-10.1); CARBON DIOXIDE LEVEL 28 MEQ/L (21-32); CHLORIDE LEVEL 103 MEQ/L (98-107); CHOLESTEROL LEVEL 179 MG/DL (<200); CHOLESTEROL RISK RATIO 3.254 (<5); CREATININE FOR GFR 0.76 MG/DL (0.55-1.30); GLOMERULAR FILTRATION RATE > 60.0 (>51); GLUCOSE, FASTING 96 MG/DL (70-100); HDL CHOLESTEROL 55 MG/DL (>40); LDL CHOLESTEROL 93 MG/DL (<100); NON-HDL-C 124 MG/DL; POTASSIUM SERUM 3.5 MEQ/L (3.5-5.1); SODIUM LEVEL 139 MEQ/L (136-145); TOTAL PROTEIN 7.4 GM/DL (6.4-8.2); TRIGLYCERIDES LEVEL 156 MG/DL (<150)
== END ==
LOC: EDBD 08:10 → M LAB 08:10
PROVIDERS: ATTEND Internal Medicine
DX: K51.90 Ulcerative colitis, unspecified, without complications (principal); I10 Essential (primary) hypertension; E78.00 Pure hypercholesterolemia, unspecified; E03.9 Hypothyroidism, unspecified

== ENCOUNTER 2020-02-08 07:52 | Outpatient (CLI) | payer OTHER ==
[2020-02-08] VITALS (9 sets, daily range): BP systolic 102–138; BP diastolic 52–83
[~2020-02-08] VITALS: Ht 154.9 cm; Wt 105.7 kg
[2020-02-08] MEDS ORDERED: diphenhydrAMINE 25MG PO PRIOR TO INFUSION PO ONE (08:00)
[2020-02-08] MEDS ORDERED: NS 1,000 ML IV SCH (08:00)
[2020-02-08] MEDS ORDERED: inFLIXimab INJECTION 600 MG in NS 190 ML IV ONE (08:00)
[2020-02-08] MEDS ORDERED: ACETAMINOPHEN 650MG PO PRIOR TO INFUSION PO ONE (08:00)
== END 2020-02-08 10:45 | disposition home or self-care (01) ==
LOC: EDBD → M INFU 07:52
PROVIDERS: ATTEND Internal Medicine Gastroenterology
DX: K51.90 Ulcerative colitis, unspecified, without complications (principal); Z91.013 Allergy to seafood; Z88.0 Allergy status to penicillin
CPT/HCPCS: 96413; 96415; J1745

== ENCOUNTER → 2020-03-24 | Outpatient (CLI) | payer OTHER ==
[~2020-03-24] MED LIST changes: +OMEP-221 PO; +TRAZ-252 PO
== END ==
LOC: M LABSMTC 11:27
PROVIDERS: ATTEND Anesthesiology
DX: Z01.812 Encounter for preprocedural laboratory examination (principal); Z20.828 Contact with and (suspected) exposure to other viral communicable diseases

== ENCOUNTER 2020-03-29 07:22 | Day surgery (SDC) | payer OTHER ==
[~2020-03-29] VITALS: Ht 154.9 cm; Wt 96.6 kg
[~2020-03-29 07:22] MED LIST changes: +NS 1,000 ML IV ONE
[2020-03-29] MEDS ORDERED: LIDOCAINE 2% 100MG/5ML SDV (FOR ANES.) As Ordered ONE (08:48)
[2020-03-29] MEDS ORDERED: propofoL 200 MG/20 ML VIAL As Ordered ONE (08:48)
--- NOTE | 2020-03-29 09:15 | ROOR ---
Patient Name: Dorene Greene Procedure Date: 03/29/2020 8:46 AM Date of : 1960 Age: 59 Room: [facility] Gender: Female Note Status: Finalized Procedure: Colonoscopy Indications: High risk colon cancer surveillance: Ulcerative left sided colitis of 8 (or more) years duration Providers: Andrea JOSHUA MD Referring MD: Adrian Kemp MD Requesting Provider: Medicines: Monitored Anesthesia Care Complications: No immediate complications. Procedure: Pre-Anesthesia Assessment: - The heart rate, respiratory rate, oxygen saturations, blood pressure, adequacy of pulmonary ventilation, and response to care were monitored throughout the procedure. The Colonoscope was introduced through the anus and advanced to the terminal ileum, with identification of the appendiceal orifice and IC valve. The colonoscopy was performed without difficulty. The patient tolerated the procedure well. The quality of the bowel preparation was adequate and fair. Findings: The perianal and digital rectal examinations were normal. The terminal ileum appeared normal. A diminutive polyp was found in the recto-sigmoid colon. The polyp was sessile. The polyp was removed with a cold snare. Resection and retrieval were complete. Normal mucosa was found in the entire colon. Biopsies were taken with a cold forceps in the rectum, in the sigmoid colon, in the descending colon, in the transverse colon and in the ascending colon for histology. Impression: - Preparation of the colon was fair. - The examined portion of the ileum was normal. - One diminutive polyp at the recto-sigmoid colon, removed with a cold snare. Resected and retrieved. - Otherwise normal mucosa in the entire colon. Ulcerative colitis is visually in remission. - Small internal hemorrhoids. - Biopsies were taken with a cold forceps for histology in the rectum, in the sigmoid colon, in the descending colon, in the transverse colon and in the ascending colon. Recommendation: - Repeat colonoscopy in 2 years for surveillance. - Continue present medications. Procedure Code(s): --- Professional --- 91515, Colonoscopy, flexible; with removal of tumor(s), polyp(s), or other lesion(s) by snare technique 42970, 59, Colonoscopy, flexible; with biopsy, single or multiple Diagnosis Code(s): --- Professional --- K63.5, Polyp of colon K51.50, Left sided colitis without complications CPT copyright 2019 [employer]. All rights reserved. The codes documented in this report are preliminary and upon medical records coder review may be revised to meet current compliance requirements. Andrea Joshua MD Andrea JOSHUA MD 03/29/2020 9:14:40 AM Electronically signed by Andrea JOSHUA MD Number of Addenda: 0 Note Initiated On: 03/29/2020 8:46 AM Estimated Blood Loss: Estimated blood loss: none.
[2020-03-29 09:35] VITALS: BP 98/53
== END 2020-03-29 09:44 | disposition home or self-care (01) ==
LOC: M OPP 07:22
PROVIDERS: ATTEND Internal Medicine Gastroenterology
DX: K63.5 Polyp of colon (principal); K51.90 Ulcerative colitis, unspecified, without complications; Z09 Encounter for follow-up examination after completed treatment for conditions other than malignant neoplasm; I10 Essential (primary) hypertension; Z79.899 Other long term (current) drug therapy; Z88.0 Allergy status to penicillin; Z88.6 Allergy status to analgesic agent; Z91.013 Allergy to seafood; Z91.018 Allergy to other foods

== ENCOUNTER 2020-05-30 07:44 | Outpatient (CLI) | payer OTHER ==
[2020-05-30] VITALS (7 sets, daily range): BP systolic 114–122; BP diastolic 58–68
[~2020-05-30] VITALS: Ht 154.9 cm; Wt 105.7 kg
[2020-05-30] MEDS ORDERED: inFLIXimab INJECTION 600 MG in NS 190 ML IV ONE (08:00)
[2020-05-30] MEDS ORDERED: ACETAMINOPHEN 650MG ER TAB (TYLENOL ARTHRITIS) PO ONE (08:00)
[2020-05-30] MEDS ORDERED: NS 1,000 ML IV SCH (08:00)
[2020-05-30] MEDS ORDERED: diphenhydrAMINE 25MG CAP PO ONE (08:00)
== END 2020-05-30 11:05 | disposition home or self-care (01) ==
LOC: EDBD → M INFU 07:44
PROVIDERS: ATTEND Internal Medicine Gastroenterology
DX: K51.90 Ulcerative colitis, unspecified, without complications (principal); Z88.0 Allergy status to penicillin
CPT/HCPCS: 96413; 96415; J1745

== ENCOUNTER → 2020-05-30 | Outpatient (CLI) | payer OTHER ==
[~2020-05-30] MED LIST changes: -NS 1,000 ML IV ONE
== END ==
LOC: M LAB 07:45
PROVIDERS: ATTEND Internal Medicine
DX: E03.9 Hypothyroidism, unspecified (principal)

== ENCOUNTER → 2020-07-22 | Outpatient (CLI) | payer OTHER ==
--- NOTE | 2020-07-22 10:17 | REPMRS ---
Patient History The patient states she has not had a clinical breast exam in over a year. No known family history of cancer. Took hormonal contraceptives for 6 months. 3D TOMOSYNTHESIS WAS PERFORMED. The Marie Arreola lifetime risk for breast cancer is 7.8%. Volpara breast density b. Digital Woman Screen Mammo: July 22, 2020 - Exam #: [id number] Bilateral CC and MLO view(s) were taken. Technologist: Latricia Hoffman, Technologist Prior study comparison: December 09, 2018, bilateral digital woman screen mammo performed at [facility]. August 14, 2017, digital woman screen mammo performed at [facility]. FINDINGS: There are scattered fibroglandular densities. There has been no change in the appearance of the mammogram from the prior studies. There is a mild amount of residual fibroglandular tissue which is fairly symmetric. There is no interval development of dominant mass, architectural distortion, or clustered microcalcification suggestive of malignancy. Assessment: BI-RADS/ACR category 1 mammogram. Negative Mammogram. Recommendation Routine screening mammogram in 1 year (for women over age 40). This mammogram was interpreted with the aid of an FDA-approved computer-aided dectection system. Electronically Signed By: Oscar Baird MD 07/22/20 1016
== END ==
LOC: M WHC 09:12
PROVIDERS: ATTEND Internal Medicine
DX: Z12.31 Encounter for screening mammogram for malignant neoplasm of breast (principal)

== ENCOUNTER 2020-07-25 08:07 | Outpatient (CLI) | payer OTHER ==
[~2020-07-25] VITALS: Ht 154.9 cm; Wt 100.7 kg
[2020-07-25] VITALS (7 sets, daily range): BP systolic 120–138; BP diastolic 59–70
[~2020-07-25 08:07] MED LIST changes: +ACETAMINOPHEN 650MG PO PRIOR TO INFUSION PO ONE; +NS 1,000 ML IV SCH; +diphenhydrAMINE 25MG PO PRIOR TO INFUSION PO ONE; +inFLIXimab INJECTION 500 MG in NS 200 ML IV ONE
== END 2020-07-25 12:09 | disposition home or self-care (01) ==
LOC: EDBD → M INFU 08:07
PROVIDERS: ATTEND Internal Medicine Gastroenterology
DX: K51.90 Ulcerative colitis, unspecified, without complications (principal); Z88.0 Allergy status to penicillin; Z91.010 Allergy to peanuts; Z91.013 Allergy to seafood
CPT/HCPCS: 96413; J1745

== ENCOUNTER → 2020-07-25 | Outpatient (CLI) | payer OTHER | LOC: M LAB 08:06 | PROVIDERS: ATTEND Physician Assistant Medical | DX: K51.50 Left sided colitis without complications (principal) ==

== ENCOUNTER 2020-09-20 07:49 | Outpatient (CLI) | payer OTHER ==
[2020-09-20] VITALS (8 sets, daily range): BP systolic 106–131; BP diastolic 55–76
[~2020-09-20] VITALS: Ht 162.6 cm; Wt 100.7 kg
[~2020-09-20 07:49] MED LIST changes: -ACETAMINOPHEN 650MG PO PRIOR TO INFUSION PO ONE; -NS 1,000 ML IV SCH; -diphenhydrAMINE 25MG PO PRIOR TO INFUSION PO ONE; -inFLIXimab INJECTION 500 MG in NS 200 ML IV ONE
[2020-09-20] MEDS ORDERED: NS 1,000 ML IV SCH (08:00)
[2020-09-20] MEDS ORDERED: diphenhydrAMINE 25MG PO PRIOR TO INFUSION PO ONE (08:00)
[2020-09-20] MEDS ORDERED: ACETAMINOPHEN 650MG PO PRIOR TO INFUSION PO ONE (08:00)
[2020-09-20] MEDS ORDERED: inFLIXimab INJECTION 500 MG in NS 200 ML IV ONE (08:00)
== END 2020-09-20 10:35 | disposition home or self-care (01) ==
LOC: M INFU 07:49
PROVIDERS: ATTEND Internal Medicine Gastroenterology
DX: K51.90 Ulcerative colitis, unspecified, without complications (principal); Z88.0 Allergy status to penicillin; Z91.010 Allergy to peanuts; Z91.013 Allergy to seafood
CPT/HCPCS: 96413; 96415; J1745

== ENCOUNTER 2020-11-14 08:24 | Outpatient (CLI) | payer OTHER ==
[~2020-11-14 08:24] MED LIST changes: -ACETAMINOPHEN 650MG PO PRIOR TO INFUSION PO ONE; -NS 1,000 ML IV SCH; -diphenhydrAMINE 25MG PO PRIOR TO INFUSION PO ONE; -inFLIXimab INJECTION 500 MG in NS 200 ML IV ONE
[2020-11-14 09:02] LABS: BASO # 0.1 10^3/uL (0.0-0.2); BASO % 0.9 % (0.0-1.0); EOS # 0.2 10^3/uL (0.0-0.5); EOS % 2.8 % (0.0-3.0); HEMATOCRIT 37.6 % (36.0-47.0); HEMOGLOBIN 12.6 g/dl (12.0-15.5); LYMPH # 1.3 10^3/uL (1.5-5.0); LYMPH % 24.7 % (24.0-44.0); MEAN CORPUSCULAR HEMOGLOBIN 29.8 pg (27.0-33.0); MEAN CORPUSCULAR HGB CONC 33.5 g/dl (32.0-36.5); MEAN CORPUSCULAR VOLUME 88.9 fl (80.0-96.0); MONO # 0.4 10^3/uL (0.0-0.8); NEUTROPHILS # 3.4 10^3/uL (1.5-8.5); NEUTROPHILS % 63.2 % (36.0-66.0); PLATELET COUNT, AUTOMATED 256 10^3/uL (150-450); RED BLOOD COUNT 4.23 10^6/uL (4.00-5.40); WHITE BLOOD COUNT 5.4 10^3/uL (4.0-10.0)
[2020-11-14 09:38] LABS: ALBUMIN 3.9 GM/DL (3.2-5.2); ALT/SGPT 37 U/L (12-78); BILIRUBIN,TOTAL 0.5 MG/DL (0.2-1.0); BLOOD UREA NITROGEN 14 MG/DL (7-18); CALCIUM LEVEL 9.4 MG/DL (8.8-10.2); CARBON DIOXIDE LEVEL 31 MEQ/L (21-32); CHLORIDE LEVEL 104 MEQ/L (98-107); CHOLESTEROL LEVEL 189 MG/DL (<200); CREATININE FOR GFR 0.71 MG/DL (0.55-1.30); GLOMERULAR FILTRATION RATE > 60.0 (>45); GLUCOSE, FASTING 103 MG/DL (70-100); HDL CHOLESTEROL 60 MG/DL (>40); LDL CHOLESTEROL 87 MG/DL (<100); MAGNESIUM LEVEL 2.4 MG/DL (1.8-2.4); NON-HDL-C 129 MG/DL; POTASSIUM SERUM 3.7 MEQ/L (3.5-5.1); SODIUM LEVEL 140 MEQ/L (136-145); TOTAL PROTEIN 7.4 GM/DL (6.4-8.2); TRIGLYCERIDES LEVEL 209 MG/DL (<150)
== END 2020-11-14 12:00 | disposition home or self-care (01) ==
LOC: M LAB 08:24
PROVIDERS: ATTEND Internal Medicine
DX: E03.9 Hypothyroidism, unspecified (principal); I10 Essential (primary) hypertension; K51.90 Ulcerative colitis, unspecified, without complications; E78.00 Pure hypercholesterolemia, unspecified; Z11.59 Encounter for screening for other viral diseases

== ENCOUNTER → 2020-11-14 | Outpatient (CLI) | payer OTHER ==
[2020-11-14] VITALS (9 sets, daily range): BP systolic 115–133; BP diastolic 57–83
[~2020-11-14] VITALS: Ht 162.6 cm; Wt 100.7 kg
[~2020-11-14] MED LIST changes: +ACETAMINOPHEN 650MG PO PRIOR TO INFUSION PO ONE; +NS 1,000 ML IV SCH; +diphenhydrAMINE 25MG PO PRIOR TO INFUSION PO ONE; +inFLIXimab INJECTION 500 MG in NS 200 ML IV ONE
== END ==
LOC: M INFU 08:19
PROVIDERS: ATTEND Internal Medicine Gastroenterology
DX: K51.90 Ulcerative colitis, unspecified, without complications (principal); Z88.0 Allergy status to penicillin; Z91.010 Allergy to peanuts; Z91.013 Allergy to seafood
CPT/HCPCS: 96413; 96415; J1745

== ENCOUNTER 2021-01-09 08:13 | Outpatient (CLI) | payer OTHER ==
[~2021-01-09] VITALS: Ht 162.6 cm; Wt 100.7 kg
[~2021-01-09 08:13] MED LIST changes: +ACETAMINOPHEN 650MG PO PRIOR TO INFUSION PO ONE; +INFLIXIMAB BIOSIMILAR 500 MG in NS 200 ML IV ONE; +NS 1,000 ML IV SCH; +diphenhydrAMINE 25MG PO PRIOR TO INFUSION PO ONE
[2021-01-09 08:45] VITALS: BP 126/67
[2021-01-09 09:50] VITALS: BP 129/70
[2021-01-09 10:05] VITALS: BP 134/61
[2021-01-09 10:20] VITALS: BP 131/64
[2021-01-09 11:05] VITALS: BP 129/79
[2021-01-09 12:00] VITALS: BP 150/75
== END 2021-01-09 12:00 | disposition home or self-care (01) ==
LOC: M INFU 08:13
PROVIDERS: ATTEND Internal Medicine Gastroenterology
DX: K51.90 Ulcerative colitis, unspecified, without complications (principal); Z88.0 Allergy status to penicillin; Z91.010 Allergy to peanuts; Z91.013 Allergy to seafood
CPT/HCPCS: 96365; 96366; Q5103

== ENCOUNTER 2021-03-07 07:33 | Outpatient (CLI) | payer OTHER ==
[~2021-03-07] VITALS: Ht 162.6 cm; Wt 100.7 kg
[2021-03-07 07:51] VITALS: BP 159/89
[2021-03-07 08:45] VITALS: BP 128/80
[2021-03-07 09:00] VITALS: BP 121/71
[2021-03-07 09:15] VITALS: BP 128/62
[2021-03-07 09:58] VITALS: BP 134/73
[2021-03-07 10:41] VITALS: BP 133/83
== END 2021-03-07 10:45 | disposition home or self-care (01) ==
LOC: M INFU 07:33
PROVIDERS: ATTEND Internal Medicine Gastroenterology
DX: K51.90 Ulcerative colitis, unspecified, without complications (principal); Z91.018 Allergy to other foods; Z88.0 Allergy status to penicillin
CPT/HCPCS: 96365; 96366; Q5103

== ENCOUNTER 2021-05-01 08:43 | Outpatient (CLI) | payer OTHER ==
[2021-05-01] VITALS (7 sets, daily range): BP systolic 119–140; BP diastolic 59–81
[~2021-05-01] VITALS: Ht 162.6 cm; Wt 100.7 kg
[~2021-05-01 08:43] MED LIST changes: -LISI10TA15 PO; +LISI10TA24 PO; -LISI20TA20 PO; +LISI20TA37 PO
== END 2021-05-01 11:45 | disposition home or self-care (01) ==
LOC: M INFU 08:43
PROVIDERS: ATTEND Internal Medicine Gastroenterology
DX: K51.90 Ulcerative colitis, unspecified, without complications (principal); Z88.0 Allergy status to penicillin; Z91.013 Allergy to seafood; Z91.010 Allergy to peanuts
CPT/HCPCS: 96365; 96366; Q5103

== ENCOUNTER 2021-06-26 08:28 | Outpatient (CLI) | payer OTHER ==
[~2021-06-26] VITALS: Ht 162.6 cm; Wt 100.7 kg
[2021-06-26] VITALS (7 sets, daily range): BP systolic 113–182; BP diastolic 56–86
[~2021-06-26 08:28] MED LIST changes: -OMEP-221 PO; +OMEP40CA5 PO
== END 2021-06-26 11:30 | disposition home or self-care (01) ==
LOC: M INFU 08:28
PROVIDERS: ATTEND Internal Medicine Gastroenterology
DX: K51.90 Ulcerative colitis, unspecified, without complications (principal); Z88.0 Allergy status to penicillin
CPT/HCPCS: 96413; 96415; Q5103

== ENCOUNTER 2021-08-21 07:56 | Outpatient (CLI) | payer OTHER ==
[2021-08-21] VITALS (7 sets, daily range): BP systolic 115–133; BP diastolic 60–76
[~2021-08-21] VITALS: Ht 162.6 cm; Wt 102.9 kg
[~2021-08-21 07:56] MED LIST changes: -ACETAMINOPHEN 650MG PO PRIOR TO INFUSION PO ONE; -INFLIXIMAB BIOSIMILAR 500 MG in NS 200 ML IV ONE; -NS 1,000 ML IV SCH; -diphenhydrAMINE 25MG PO PRIOR TO INFUSION PO ONE
[2021-08-21] MEDS ORDERED: ACETAMINOPHEN 650MG PO PRIOR TO INFUSION PO ONE (08:00)
[2021-08-21] MEDS ORDERED: NS 1,000 ML IV SCH (08:00)
[2021-08-21] MEDS ORDERED: diphenhydrAMINE 25MG PO PRIOR TO INFUSION PO ONE (08:00)
[2021-08-21] MEDS ORDERED: INFLIXIMAB BIOSIMILAR 500 MG in NS 200 ML IV ONE (08:00)
== END 2021-08-21 10:40 | disposition home or self-care (01) ==
LOC: M INFU 07:56
PROVIDERS: ATTEND Internal Medicine Gastroenterology
DX: K51.90 Ulcerative colitis, unspecified, without complications (principal)
CPT/HCPCS: 36592; 86480; 87340; 96413; 96415; Q5103

== ENCOUNTER 2021-10-16 08:05 | Outpatient (CLI) | payer OTHER ==
[~2021-10-16] VITALS: Ht 154.9 cm; Wt 102.0 kg
[2021-10-16 08:05] VITALS: BP 147/80
[~2021-10-16 08:05] MED LIST changes: +ACETAMINOPHEN 650MG PO PRIOR TO INFUSION PO ONE; +INFLIXIMAB BIOSIMILAR 500 MG in NS 200 ML IV ONE; +NS 1,000 ML IV SCH; +diphenhydrAMINE 25MG PO PRIOR TO INFUSION PO ONE
[2021-10-16 09:14] VITALS: BP 147/80
[2021-10-16 09:30] VITALS: BP 138/75
[2021-10-16 10:00] VITALS: BP 133/64
[2021-10-16 11:20] VITALS: BP 133/64
== END 2021-10-16 11:20 | disposition home or self-care (01) ==
LOC: M INFU 08:05
PROVIDERS: ATTEND Internal Medicine Gastroenterology
DX: K51.90 Ulcerative colitis, unspecified, without complications (principal); Z91.010 Allergy to peanuts; Z88.0 Allergy status to penicillin; Z91.013 Allergy to seafood
CPT/HCPCS: 96413; 96415; Q5103

== ENCOUNTER → 2021-10-16 | Outpatient (CLI) | payer OTHER ==
[2021-10-16 09:16] LABS: BASO # 0.1 10^3/uL (0.0-0.2); EOS # 0.1 10^3/uL (0.0-0.5); EOS % 2.7 % (0.0-3.0); HEMATOCRIT 36.6 % (36.0-47.0); HEMOGLOBIN 12.3 g/dl (12.0-15.5); LYMPH # 1.4 10^3/uL (1.5-5.0); LYMPH % 27.1 % (24.0-44.0); MEAN CORPUSCULAR HGB CONC 33.6 g/dl (32.0-36.5); MEAN CORPUSCULAR VOLUME 89.3 fl (80.0-96.0); MONO # 0.4 10^3/uL (0.0-0.8); MONO % 7.7 % (2.0-8.0); NEUTROPHILS # 3.2 10^3/uL (1.5-8.5); NEUTROPHILS % 61.3 % (36.0-66.0); PLATELET COUNT, AUTOMATED 240 10^3/uL (150-450); WHITE BLOOD COUNT 5.2 10^3/uL (4.0-10.0)
[2021-10-16 09:54] LABS: ALBUMIN 3.8 GM/DL (3.2-5.2); ALT/SGPT 32 U/L (12-78); BILIRUBIN,TOTAL 0.4 MG/DL (0.2-1.0); BLOOD UREA NITROGEN 14 MG/DL (7-18); CALCIUM LEVEL 9.6 MG/DL (8.8-10.2); CARBON DIOXIDE LEVEL 28 MEQ/L (21-32); CHLORIDE LEVEL 107 MEQ/L (98-107); CHOLESTEROL LEVEL 182 MG/DL (<200); CHOLESTEROL RISK RATIO 3.033 (<5); CREATININE FOR GFR 0.74 MG/DL (0.55-1.30); GLOMERULAR FILTRATION RATE > 60.0 (>45); GLUCOSE, FASTING 112 MG/DL (70-100); HDL CHOLESTEROL 60 MG/DL (>40); LDL CHOLESTEROL 93 MG/DL (<100); NON-HDL-C 122 MG/DL; POTASSIUM SERUM 3.7 MEQ/L (3.5-5.1); SODIUM LEVEL 141 MEQ/L (136-145); TRIGLYCERIDES LEVEL 146 MG/DL (<150)
== END ==
LOC: M LAB 08:45
PROVIDERS: ATTEND Internal Medicine
DX: E78.00 Pure hypercholesterolemia, unspecified (principal); K51.90 Ulcerative colitis, unspecified, without complications; E03.9 Hypothyroidism, unspecified

== ENCOUNTER → 2021-10-30 | Outpatient (CLI) | payer OTHER ==
[~2021-10-30] MED LIST changes: -ACETAMINOPHEN 650MG PO PRIOR TO INFUSION PO ONE; -INFLIXIMAB BIOSIMILAR 500 MG in NS 200 ML IV ONE; -NS 1,000 ML IV SCH; -diphenhydrAMINE 25MG PO PRIOR TO INFUSION PO ONE
[2021-10-31 00:26] LABS: HEMOGLOBIN A1c 5.4 %
== END ==
LOC: M PLALAB 10:27
PROVIDERS: ATTEND Internal Medicine
DX: R73.01 Impaired fasting glucose (principal)

== ENCOUNTER 2021-12-11 08:15 | Outpatient (CLI) | payer OTHER ==
[~2021-12-11] VITALS: Ht 154.9 cm; Wt 90.9 kg
[2021-12-11 08:20] VITALS: BP 140/73
[2021-12-11] MEDS ORDERED: NS 1,000 ML IV SCH (08:30)
[2021-12-11] MEDS ORDERED: INFLIXIMAB BIOSIMILAR 500 MG in NS 200 ML IV ONE (08:30)
[2021-12-11] MEDS ORDERED: diphenhydrAMINE 25MG PO PRIOR TO INFUSION PO ONE (08:30)
[2021-12-11] MEDS ORDERED: ACETAMINOPHEN 650MG PO PRIOR TO INFUSION PO ONE (08:30)
[2021-12-11 10:00] VITALS: BP 146/90
[2021-12-11 10:45] VITALS: BP 147/69
[2021-12-11 11:30] VITALS: BP 126/71
== END 2021-12-11 11:30 | disposition home or self-care (01) ==
LOC: M INFU 08:15
PROVIDERS: ATTEND Internal Medicine Gastroenterology
DX: K51.90 Ulcerative colitis, unspecified, without complications (principal); Z88.0 Allergy status to penicillin; Z91.010 Allergy to peanuts; Z91.013 Allergy to seafood
CPT/HCPCS: 96413; 96415; Q5103

== ENCOUNTER → 2022-01-30 | Outpatient (CLI) | payer OTHER | LOC: M WHC 15:46 | PROVIDERS: ATTEND Internal Medicine | DX: Z12.39 Encounter for other screening for malignant neoplasm of breast (principal) ==

== ENCOUNTER 2022-02-05 08:35 | Outpatient (CLI) | payer OTHER ==
[~2022-02-05 08:35] MED LIST changes: +ACETAMINOPHEN 650MG PO PRIOR TO INFUSION PO ONE; +INFLIXIMAB BIOSIMILAR 500 MG in NS 200 ML IV ONE; +NS 1,000 ML IV SCH; +diphenhydrAMINE 25MG PO PRIOR TO INFUSION PO ONE
[2022-02-05 08:45] VITALS: BP_SYST 133; BP_SYST 140; BP_DIAS 74; BP_DIAS 80
[2022-02-05 09:30] VITALS: BP 133/74
[2022-02-05 10:15] VITALS: BP 128/67
[2022-02-05 11:00] VITALS: BP 125/68
[2022-02-05 11:40] VITALS: BP 126/74
== END 2022-02-05 11:40 | disposition home or self-care (01) ==
LOC: M INFU 08:35
PROVIDERS: ATTEND Internal Medicine Gastroenterology
DX: K51.90 Ulcerative colitis, unspecified, without complications (principal); Z88.0 Allergy status to penicillin; Z91.010 Allergy to peanuts; Z91.013 Allergy to seafood
CPT/HCPCS: 96413; 96415; Q5103

== ENCOUNTER 2022-04-02 08:30 | Outpatient (CLI) | payer OTHER ==
[~2022-04-02] VITALS: Ht 162.6 cm; Wt 100.2 kg
[2022-04-02 08:39] VITALS: BP 168/78
[2022-04-02 10:00] VITALS: BP 136/70
[2022-04-02 11:23] VITALS: BP 157/100
== END 2022-04-02 11:30 | disposition home or self-care (01) ==
LOC: M INFU 08:30
PROVIDERS: ATTEND Physician Assistant Medical
DX: K51.90 Ulcerative colitis, unspecified, without complications (principal); Z88.0 Allergy status to penicillin; Z91.010 Allergy to peanuts; Z91.013 Allergy to seafood
CPT/HCPCS: 96413; 96415; Q5103

== ENCOUNTER 2022-05-28 09:15 | Outpatient (CLI) | payer OTHER ==
[2022-05-28] VITALS (7 sets, daily range): BP systolic 116–126; BP diastolic 58–80
== END 2022-05-28 12:10 | disposition home or self-care (01) ==
LOC: M INFU 09:15
PROVIDERS: ATTEND Physician Assistant Medical
DX: K51.90 Ulcerative colitis, unspecified, without complications (principal); Z88.0 Allergy status to penicillin; Z91.010 Allergy to peanuts; Z91.013 Allergy to seafood
CPT/HCPCS: 96413; 96415; Q5103

== ENCOUNTER 2022-10-08 08:30 | Outpatient (CLI) | payer OTHER ==
[2022-10-08 08:35] VITALS: BP 129/61; O2SAT 98
[2022-10-08] MEDS ORDERED: diphenhydrAMINE 25MG PO PRIOR TO INFUSION PO ONE (09:00)
[2022-10-08] MEDS ORDERED: NS 1,000 ML IV SCH (09:00)
[2022-10-08] MEDS ORDERED: ACETAMINOPHEN 650MG PO PRIOR TO INFUSION PO ONE (09:00)
[2022-10-08] MEDS ORDERED: INFLIXIMAB BIOSIMILAR 500 MG in NS 200 ML IV ONE (09:00)
[2022-10-08 10:00] VITALS: BP 124/62; O2SAT 99
[2022-10-08 11:39] VITALS: BP 108/64; O2SAT 94
== END 2022-10-08 11:40 | disposition home or self-care (01) ==
LOC: M INFU 08:30
PROVIDERS: ATTEND Physician Assistant Medical
DX: K51.90 Ulcerative colitis, unspecified, without complications (principal); Z88.0 Allergy status to penicillin; Z91.010 Allergy to peanuts; Z91.013 Allergy to seafood

== ENCOUNTER → 2022-10-08 | Outpatient (CLI) | payer OTHER ==
[~2022-10-08] MED LIST changes: -ACETAMINOPHEN 650MG PO PRIOR TO INFUSION PO ONE; -INFLIXIMAB BIOSIMILAR 500 MG in NS 200 ML IV ONE; -NS 1,000 ML IV SCH; -diphenhydrAMINE 25MG PO PRIOR TO INFUSION PO ONE
[2022-10-08 09:26] LABS: HEMATOCRIT 38.5 % (36.0-47.0); HEMOGLOBIN 13.1 g/dl (12.0-15.5); MEAN CORPUSCULAR HEMOGLOBIN 30.4 pg (27.0-33.0); MEAN CORPUSCULAR VOLUME 89.3 fl (80.0-96.0); PLATELET COUNT, AUTOMATED 279 10^3/uL (150-450); RED BLOOD COUNT 4.31 10^6/uL (4.00-5.40); WHITE BLOOD COUNT 6.2 10^3/uL (4.0-10.0)
[2022-10-08 09:33] LABS: HEMOGLOBIN A1c 5.3 % (4.0-6.0)
[2022-10-08 09:54] LABS: ALKALINE PHOSPHATASE 94 U/L (46-116); ALT/SGPT 22 U/L (7.0-40); AST/SGOT 15 U/L (<34); BILIRUBIN,TOTAL 0.6 MG/DL (0.3-1.2); BLOOD UREA NITROGEN 18 MG/DL (9-23); CALCIUM LEVEL 9.6 MG/DL (8.3-10.6); CARBON DIOXIDE LEVEL 28 MMOL/L (20-31); CHLORIDE LEVEL 102 MMOL/L (98-107); CHOLESTEROL LEVEL 169 MG/DL (<200); CHOLESTEROL RISK RATIO 2.76 (<5); CREATININE FOR GFR 0.68 MG/DL (0.55-1.30); GLOMERULAR FILTRATION RATE > 60.0 (>45); GLUCOSE, FASTING 102 MG/DL (74-106); HDL CHOLESTEROL 61.2 MG/DL (>40); LDL CHOLESTEROL 76.4 MG/DL (<100); NON-HDL-C 107.8 MG/DL; POTASSIUM SERUM 3.4 MMOL/L (3.5-5.1); SODIUM LEVEL 137 MMOL/L (136-145); TOTAL PROTEIN 6.9 G/DL (5.7-8.2); TRIGLYCERIDES LEVEL 157 MG/DL (<150)
[2022-10-08 09:57] LABS: FERRITIN 86.1 NG/ML (7.3-270.7); FREE T4 1.46 NG/DL (0.89-1.76)
[2022-10-08 09:58] LABS: THYROID STIMULATING HORMONE 2.788 uIU/ML (0.55-4.78); TOTAL 25(OH) VITAMIN D 26.6 NG/ML (20.0-100.0); VITAMIN B12 LEVEL 519 PG/ML (211-911)
[2022-10-08 10:05] LABS: CREATININE, URINE 11.7 MG/DL; MALB URINE SIEMENS < 3.0 MG/L; MAU/CREAT RATIO 25.6 MCG/MG (0.0-30.0)
== END ==
LOC: M LAB 08:44
PROVIDERS: ATTEND Internal Medicine Hematology
DX: E03.9 Hypothyroidism, unspecified (principal); E78.00 Pure hypercholesterolemia, unspecified

== ENCOUNTER 2022-12-06 07:43 | Day surgery (SDC) | payer OTHER ==
[~2022-12-06] VITALS: Ht 154.9 cm; Wt 99.8 kg
[~2022-12-06 07:43] MED LIST changes: +INFL100I IV; +LIDOCAINE 2% 100MG/5ML SDV (FOR ANES.) As Ordered ONE; +NS 1,000 ML IV ONE; +SERT-141 PO; +propofoL 200 MG/20 ML VIAL As Ordered ONE
[2022-12-06 10:23] VITALS: BP 122/79; TEMP 97.3; O2SAT 100
== END 2022-12-06 10:00 | disposition home or self-care (01) ==
LOC: M OPP 07:43
PROVIDERS: ATTEND Internal Medicine Gastroenterology
DX: K51.50 Left sided colitis without complications (principal); Z09 Encounter for follow-up examination after completed treatment for conditions other than malignant neoplasm; K63.89 Other specified diseases of intestine; K62.89 Other specified diseases of anus and rectum; K63.5 Polyp of colon; Z86.010 Personal history of colon polyps; Z79.02 Long term (current) use of antithrombotics/antiplatelets; Z79.620 Long term (current) use of immunosuppressive biologic; Z79.890 Hormone replacement therapy; Z79.899 Other long term (current) drug therapy; Z88.0 Allergy status to penicillin; Z91.013 Allergy to seafood; Z91.018 Allergy to other foods

== ENCOUNTER 2023-01-28 08:25 | Outpatient (CLI) | payer OTHER ==
[~2023-01-28] VITALS: Ht 154.9 cm; Wt 100.0 kg
[2023-01-28 08:25] VITALS: BP 130/69; O2SAT 95
[~2023-01-28 08:25] MED LIST changes: -LIDOCAINE 2% 100MG/5ML SDV (FOR ANES.) As Ordered ONE; -NS 1,000 ML IV ONE; -propofoL 200 MG/20 ML VIAL As Ordered ONE
[2023-01-28] MEDS ORDERED: NS 1,000 ML IV SCH (08:30)
[2023-01-28] MEDS ORDERED: INFLIXIMAB BIOSIMILAR 500 MG in NS 200 ML IV ONE (08:30)
[2023-01-28] MEDS ORDERED: ACETAMINOPHEN 650MG PO PRIOR TO INFUSION PO ONE (08:30)
[2023-01-28] MEDS ORDERED: diphenhydrAMINE 25MG PO PRIOR TO INFUSION PO ONE (08:30)
[2023-01-28 10:00] VITALS: BP 125/65; O2SAT 97
[2023-01-28 10:30] VITALS: BP 123/69; O2SAT 97
[2023-01-28 11:00] VITALS: BP 125/65; O2SAT 98
[2023-01-28 11:30] VITALS: BP 132/66; O2SAT 97
[2023-01-28 11:35] VITALS: BP 132/66; TEMP 36.6; O2SAT 97
== END 2023-01-28 11:35 | disposition home or self-care (01) ==
LOC: M INFU 08:25
PROVIDERS: ATTEND Physician Assistant Medical
DX: K51.90 Ulcerative colitis, unspecified, without complications (principal); Z88.0 Allergy status to penicillin; Z91.013 Allergy to seafood; Z91.010 Allergy to peanuts

== ENCOUNTER 2023-03-25 08:30 | Outpatient (CLI) | payer OTHER ==
[~2023-03-25] VITALS: Ht 154.9 cm; Wt 101.8 kg
[~2023-03-25 08:30] MED LIST changes: +ACETAMINOPHEN 650MG PO PRIOR TO INFUSION PO ONE; +INFLIXIMAB BIOSIMILAR 500 MG in NS 200 ML IV ONE; +NS 1,000 ML IV SCH; +diphenhydrAMINE 25MG PO PRIOR TO INFUSION PO ONE
[2023-03-25 08:35] VITALS: BP 122/62; O2SAT 97
[2023-03-25 10:00] VITALS: BP 104/57; O2SAT 96
[2023-03-25 11:20] VITALS: BP 137/67; TEMP 36.2; O2SAT 97
== END 2023-03-25 11:20 | disposition home or self-care (01) ==
LOC: M INFU 08:30
PROVIDERS: ATTEND Physician Assistant Medical
DX: K51.90 Ulcerative colitis, unspecified, without complications (principal); Z88.0 Allergy status to penicillin

== ENCOUNTER 2023-05-20 08:05 | Outpatient (CLI) | payer OTHER ==
[~2023-05-20] VITALS: Ht 154.9 cm; Wt 102.0 kg
[~2023-05-20 08:05] MED LIST changes: -ACETAMINOPHEN 650MG PO PRIOR TO INFUSION PO ONE; -INFLIXIMAB BIOSIMILAR 500 MG in NS 200 ML IV ONE; -NS 1,000 ML IV SCH; -diphenhydrAMINE 25MG PO PRIOR TO INFUSION PO ONE
[2023-05-20 08:20] VITALS: BP 172/84; O2SAT 96
[2023-05-20] MEDS ORDERED: INFLIXIMAB BIOSIMILAR 500 MG in NS 200 ML IV ONE (08:30)
[2023-05-20] MEDS ORDERED: NS 1,000 ML IV SCH (08:30)
[2023-05-20] MEDS ORDERED: diphenhydrAMINE 25MG PO PRIOR TO INFUSION PO ONE (08:30)
[2023-05-20] MEDS ORDERED: ACETAMINOPHEN 650MG PO PRIOR TO INFUSION PO ONE (08:30)
[2023-05-20 09:30] VITALS: BP 134/71; O2SAT 96
[2023-05-20 10:00] VITALS: BP 133/76; O2SAT 97
[2023-05-20 11:00] VITALS: BP 174/79; O2SAT 98
[2023-05-20 11:06] VITALS: BP 174/79; TEMP 36.3; O2SAT 98
== END 2023-05-20 11:00 | disposition home or self-care (01) ==
LOC: M INFU 08:05
PROVIDERS: ATTEND Physician Assistant Medical
DX: K51.90 Ulcerative colitis, unspecified, without complications (principal); Z91.013 Allergy to seafood; Z88.0 Allergy status to penicillin; Z91.010 Allergy to peanuts

== ENCOUNTER → 2023-07-15 | Outpatient (CLI) | payer OTHER | LOC: M WHC 13:57 | PROVIDERS: ATTEND Internal Medicine Hematology | DX: Z12.31 Encounter for screening mammogram for malignant neoplasm of breast (principal); N63.21 Unspecified lump in the left breast, upper outer quadrant ==

== ENCOUNTER 2023-07-23 13:00 | Outpatient (CLI) | payer OTHER ==
[2023-07-23 12:55] VITALS: BP 129/75; TEMP 97.6; O2SAT 97
[~2023-07-23 13:00] MED LIST changes: +NS 1,000 ML IV SCH
[2023-07-23] MEDS: ACETAMINOPHEN TAB 650MG DOSE (2X325MG) PO ONE (13:02)
[2023-07-23] MEDS: diphenhydrAMINE 25MG PO PRIOR TO INFUSION PO ONE (13:03)
[2023-07-23] MEDS: INFLIXIMAB BIOSIMILAR 500 MG in NS 200 ML IV ONE (13:20)
[2023-07-23 13:35] VITALS: BP 129/66; TEMP 97.8; O2SAT 98
[2023-07-23 14:05] VITALS: BP 129/77; TEMP 97.4; O2SAT 100
[2023-07-23 15:28] VITALS: BP 137/74; O2SAT 97
== END 2023-07-23 15:30 | disposition home or self-care (01) ==
LOC: M INFU 13:00
PROVIDERS: ATTEND Physician Assistant Medical
DX: K51.90 Ulcerative colitis, unspecified, without complications (principal); Z88.0 Allergy status to penicillin; Z91.013 Allergy to seafood; Z91.010 Allergy to peanuts

== ENCOUNTER → 2023-07-30 | Outpatient (CLI) | payer OTHER ==
[~2023-07-30] MED LIST changes: -NS 1,000 ML IV SCH
== END ==
LOC: M WHC 09:05
PROVIDERS: ATTEND Internal Medicine Hematology
DX: N60.01 Solitary cyst of right breast (principal)

== ENCOUNTER 2023-09-27 12:50 | Outpatient (CLI) | payer OTHER ==
[~2023-09-27] VITALS: Ht 154.9 cm; Wt 99.0 kg
[2023-09-27 12:50] VITALS: BP 141/67; O2SAT 94
[~2023-09-27 12:50] MED LIST changes: +NS 1,000 ML IV SCH
[2023-09-27] MEDS: ACETAMINOPHEN 650MG PO PRIOR TO INFUSION PO ONE (13:11)
[2023-09-27] MEDS: diphenhydrAMINE 25MG PO PRIOR TO INFUSION PO ONE (13:12)
[2023-09-27] MEDS: INFLIXIMAB BIOSIMILAR 500 MG in NS 200 ML IV ONE (13:34)
[2023-09-27 13:56] VITALS: BP 127/67; O2SAT 97
[2023-09-27 14:29] VITALS: BP 122/75; O2SAT 98
[2023-09-27 15:40] VITALS: BP 122/79; O2SAT 98
== END 2023-09-27 15:40 ==
LOC: M INFU 12:50
PROVIDERS: ATTEND Physician Assistant Medical
DX: K51.90 Ulcerative colitis, unspecified, without complications (principal); Z88.0 Allergy status to penicillin; Z91.010 Allergy to peanuts; Z91.013 Allergy to seafood
CPT/HCPCS: 96365; 96366; Q5103

== ENCOUNTER → 2023-11-04 | Outpatient (CLI) | payer OTHER ==
[~2023-11-04] MED LIST changes: -NS 1,000 ML IV SCH
[2023-11-04 15:30] LABS: BASO # 0.1 10^3/uL (0.0-0.2); BASO % 0.7 % (0.0-1.0); EOS # 0.1 10^3/uL (0.0-0.5); EOS % 1.7 % (0.0-3.0); HEMATOCRIT 39.9 % (36.0-47.0); HEMOGLOBIN 13.1 g/dl (12.0-15.5); LYMPH # 2.1 10^3/uL (1.5-5.0); LYMPH % 29.9 % (24.0-44.0); MEAN CORPUSCULAR HEMOGLOBIN 29.2 pg (27.0-33.0); MEAN CORPUSCULAR HGB CONC 32.8 g/dl (32.0-36.5); MEAN CORPUSCULAR VOLUME 89.1 fl (80.0-96.0); MONO # 0.6 10^3/uL (0.0-0.8); NEUTROPHILS # 4.2 10^3/uL (1.5-8.5); NEUTROPHILS % 58.4 % (36.0-66.0); PLATELET COUNT, AUTOMATED 310 10^3/uL (150-450); RED BLOOD COUNT 4.48 10^6/uL (4.00-5.40); WHITE BLOOD COUNT 7.1 10^3/uL (4.0-10.0)
[2023-11-04 15:51] LABS: CREATININE, URINE 28.7 MG/DL
[2023-11-04 15:52] LABS: MALB URINE SIEMENS < 3.0 MG/L; MAU/CREAT RATIO 10.4 MCG/MG (0.0-30.0)
[2023-11-04 15:53] LABS: ALBUMIN 4.1 G/DL (3.2-5.2); ALKALINE PHOSPHATASE 103 U/L (46-116); ALT/SGPT 28 U/L (7.0-40); AST/SGOT 27 U/L (<34); BILIRUBIN,TOTAL 0.6 MG/DL (0.3-1.2); BLOOD UREA NITROGEN 18 MG/DL (9-23); CALCIUM LEVEL 9.5 MG/DL (8.3-10.6); CARBON DIOXIDE LEVEL 31 MMOL/L (20-31); CHLORIDE LEVEL 102 MMOL/L (98-107); CHOLESTEROL LEVEL 184 MG/DL (<200); CHOLESTEROL RISK RATIO 3.15 (<5); CREATININE FOR GFR 0.78 MG/DL (0.55-1.30); GLOMERULAR FILTRATION RATE > 60.0 (>45); GLUCOSE, FASTING 75 MG/DL (74-106); HDL CHOLESTEROL 58.4 MG/DL (>40); NON-HDL-C 125.6 MG/DL; POTASSIUM SERUM 3.9 MMOL/L (3.5-5.1); SODIUM LEVEL 138 MMOL/L (136-145); TOTAL PROTEIN 7.2 G/DL (5.7-8.2); TRIGLYCERIDES LEVEL 173 MG/DL (<150)
[2023-11-04 15:55] LABS: HEMOGLOBIN A1c 5.4 % (4.0-6.0)
[2023-11-04 15:56] LABS: TOTAL 25(OH) VITAMIN D 22.3 NG/ML (20.0-100.0)
[2023-11-04 15:57] LABS: THYROID STIMULATING HORMONE 3.337 uIU/ML (0.55-4.78)
[2023-11-04 15:58] LABS: FREE T4 1.45 NG/DL (0.89-1.76); VITAMIN B12 LEVEL 559 PG/ML (211-911)
== END ==
LOC: M PLALAB 11:47
PROVIDERS: ATTEND Internal Medicine Hematology
DX: E78.00 Pure hypercholesterolemia, unspecified (principal)

== ENCOUNTER 2023-11-26 09:07 | Outpatient (CLI) | payer OTHER ==
[~2023-11-26] VITALS: Ht 160 cm; Wt 102.0 kg
[~2023-11-26 09:07] MED LIST changes: +NS 1,000 ML IV SCH
[2023-11-26 09:15] VITALS: BP 137/84; O2SAT 97
[2023-11-26] MEDS: diphenhydrAMINE 25MG PO PRIOR TO INFUSION PO ONE (09:35)
[2023-11-26] MEDS: ACETAMINOPHEN 650MG PO PRIOR TO INFUSION PO ONE (09:39)
[2023-11-26] MEDS: INFLIXIMAB BIOSIMILAR 500 MG in NS 200 ML IV ONE (10:22)
[2023-11-26 12:25] VITALS: BP 112/71; O2SAT 98
[2023-11-28 12:22] LABS: QuantiFERON-TB Gold Plus NEGATIVE (NEGATIVE)
== END 2023-11-26 12:35 ==
LOC: M INFU 09:07
PROVIDERS: ATTEND Physician Assistant Medical
DX: K51.50 Left sided colitis without complications (principal); Z80.0 Family history of malignant neoplasm of digestive organs; Z91.010 Allergy to peanuts; Z91.013 Allergy to seafood
CPT/HCPCS: 36592; 86480; 87340; 96413; 96415; Q5103

== ENCOUNTER 2024-01-21 08:22 | Outpatient (CLI) | payer OTHER ==
[~2024-01-21] VITALS: Ht 154.9 cm; Wt 100.0 kg
[~2024-01-21 08:22] MED LIST changes: -NS 1,000 ML IV SCH
[2024-01-21] MEDS ORDERED: ACETAMINOPHEN 650MG PO PRIOR TO INFUSION PO ONE (08:30)
[2024-01-21] MEDS ORDERED: NS 1,000 ML IV SCH (08:30)
[2024-01-21] MEDS: diphenhydrAMINE 25MG PO PRIOR TO INFUSION PO ONE (09:01)
[2024-01-21 09:41] VITALS: BP 132/71; TEMP 97.1; O2SAT 97
[2024-01-21] MEDS: INFLIXIMAB BIOSIMILAR 500 MG in NS 200 ML IV ONE (09:55)
[2024-01-21 10:15] VITALS: BP 121/67; O2SAT 96
[2024-01-21 10:45] VITALS: BP 117/66; O2SAT 97
[2024-01-21 11:15] VITALS: BP 119/69; O2SAT 98
[2024-01-21 12:00] VITALS: BP 123/73; O2SAT 96
== END 2024-01-21 08:30 ==
LOC: M INFU 08:22
PROVIDERS: ATTEND Physician Assistant Medical
DX: K51.90 Ulcerative colitis, unspecified, without complications (principal); Z88.0 Allergy status to penicillin; Z91.010 Allergy to peanuts; Z91.013 Allergy to seafood
CPT/HCPCS: 96413; 96415; Q5103

== ENCOUNTER 2024-03-23 08:56 | Outpatient (CLI) | payer OTHER ==
[~2024-03-23] VITALS: Ht 154.9 cm; Wt 96.3 kg
[2024-03-23] MEDS ORDERED: NS 1,000 ML IV SCH (09:00)
[2024-03-23] MEDS ORDERED: ACETAMINOPHEN 650MG PO PRIOR TO INFUSION PO ONE (09:00)
[2024-03-23] MEDS ORDERED: diphenhydrAMINE 25MG PO PRIOR TO INFUSION PO ONE (09:00)
[2024-03-23 09:05] VITALS: BP 139/79; O2SAT 100
[2024-03-23] MEDS: INFLIXIMAB BIOSIMILAR 500 MG in NS 200 ML IV ONE (09:50)
[2024-03-23 10:00] VITALS: BP 126/64; O2SAT 96
[2024-03-23 11:00] VITALS: BP 129/74; O2SAT 100
[2024-03-23 11:46] VITALS: BP 136/73; O2SAT 96
== END 2024-03-23 11:45 ==
LOC: M INFU 08:56
PROVIDERS: ATTEND Physician Assistant Medical
DX: K51.90 Ulcerative colitis, unspecified, without complications (principal); Z88.0 Allergy status to penicillin; Z91.010 Allergy to peanuts; Z91.013 Allergy to seafood
CPT/HCPCS: 96413; 96415; Q5103

== ENCOUNTER 2024-07-13 09:30 | Outpatient (CLI) | payer OTHER ==
[~2024-07-13] VITALS: Ht 154.9 cm; Wt 97.7 kg
[2024-07-13 09:30] VITALS: BP 138/63; O2SAT 97
[~2024-07-13 09:30] MED LIST changes: +NS (Normal Saline) 0.9% 1,000 ML IV SCH
[2024-07-13] MEDS: diphenhydrAMINE 25MG PO PRIOR TO INFUSION PO ONE (09:52)
[2024-07-13] MEDS: ACETAMINOPHEN 650MG PO PRIOR TO INFUSION PO ONE (09:54)
[2024-07-13] MEDS: INFLIXIMAB BIOSIMILAR 500 MG in NS 200 ML IV ONE (10:32)
[2024-07-13 11:00] VITALS: BP 129/80; O2SAT 95
[2024-07-13 11:30] VITALS: BP 129/80; O2SAT 96
[2024-07-13 12:30] VITALS: BP 139/80; O2SAT 98
== END 2024-07-13 12:40 ==
LOC: M INFU 09:30
PROVIDERS: ATTEND Internal Medicine Gastroenterology
DX: K51.90 Ulcerative colitis, unspecified, without complications (principal); Z88.0 Allergy status to penicillin; Z91.013 Allergy to seafood; Z91.010 Allergy to peanuts
CPT/HCPCS: 96413; 96415; Q5103

== ENCOUNTER → 2024-07-15 | Outpatient (CLI) | payer OTHER ==
[~2024-07-15] MED LIST changes: -NS (Normal Saline) 0.9% 1,000 ML IV SCH
[2024-07-15 13:03] LABS: BASO # 0.1 10^3/uL (0.0-0.2); BASO % 0.7 % (0.0-1.0); EOS # 0.2 10^3/uL (0.0-0.5); EOS % 2.1 % (0.0-3.0); HEMATOCRIT 38.4 % (36.0-47.0); HEMOGLOBIN 12.9 g/dl (12.0-15.5); LYMPH # 2.3 10^3/uL (1.5-5.0); LYMPH % 31.7 % (24.0-44.0); MEAN CORPUSCULAR HEMOGLOBIN 29.3 pg (27.0-33.0); MEAN CORPUSCULAR HGB CONC 33.6 g/dl (32.0-36.5); MEAN CORPUSCULAR VOLUME 87.1 fl (80.0-96.0); MONO # 0.5 10^3/uL (0.0-0.8); MONO % 7.3 % (2.0-8.0); NEUTROPHILS # 4.2 10^3/uL (1.5-8.5); NEUTROPHILS % 58.1 % (36.0-66.0); PLATELET COUNT, AUTOMATED 308 10^3/uL (150-450); RED BLOOD COUNT 4.41 10^6/uL (4.00-5.40); WHITE BLOOD COUNT 7.2 10^3/uL (4.0-10.0)
[2024-07-15 13:10] LABS: ALBUMIN 3.8 G/DL (3.2-5.2); ALKALINE PHOSPHATASE 102 U/L (35-104); ALT/SGPT 24 U/L (7.0-40); AST/SGOT 22 U/L (<34); BILIRUBIN,TOTAL 0.4 MG/DL (0.3-1.2); BLOOD UREA NITROGEN 16 MG/DL (9-23); CALCIUM LEVEL 9.9 MG/DL (8.3-10.6); CARBON DIOXIDE LEVEL 30 MMOL/L (20-31); CHLORIDE LEVEL 101 MMOL/L (98-107); CREATININE FOR GFR 0.63 MG/DL (0.55-1.30); GLOMERULAR FILTRATION RATE > 60.0 (>45); GLUCOSE, FASTING 79 MG/DL (74-106); POTASSIUM SERUM 4.1 MMOL/L (3.5-5.1); SODIUM LEVEL 139 MMOL/L (136-145); TOTAL PROTEIN 7.6 G/DL (5.7-8.2)
[2024-07-15 13:23] LABS: INR 0.92; PARTIAL THROMBOPLASTIN TIME 30.1 SECONDS (24.8-34.2); PROTHROMBIN TIME 12.7 SECONDS (12.5-14.5)
== END ==
LOC: M PLALAB 11:01
PROVIDERS: ATTEND Student in an Organized Health Care Education/Training Program
DX: Z01.818 Encounter for other preprocedural examination (principal)

== ENCOUNTER 2024-09-07 09:33 | Outpatient (CLI) | payer OTHER ==
[~2024-09-07] VITALS: Ht 154.9 cm; Wt 100.0 kg
[2024-09-07 09:50] VITALS: BP 125/58; O2SAT 96
[2024-09-07] MEDS ORDERED: NS (Normal Saline) 0.9% 1,000 ML IV SCH (10:00)
[2024-09-07] MEDS ORDERED: ACETAMINOPHEN 650MG PO PRIOR TO INFUSION PO ONE (10:00)
[2024-09-07] MEDS: diphenhydrAMINE 25MG PO PRIOR TO INFUSION PO ONE (10:25)
[2024-09-07] MEDS: INFLIXIMAB BIOSIMILAR 500 MG in NS 200 ML IV ONE (10:41)
[2024-09-07 11:10] VITALS: BP 176/96; O2SAT 100
[2024-09-07 12:45] VITALS: BP 152/84; O2SAT 100
== END 2024-09-07 12:47 | disposition home or self-care (01) ==
LOC: M INFU 09:33
PROVIDERS: ATTEND Internal Medicine Gastroenterology
DX: K51.90 Ulcerative colitis, unspecified, without complications (principal); Z88.0 Allergy status to penicillin; Z91.013 Allergy to seafood; Z91.010 Allergy to peanuts
CPT/HCPCS: 96413; 96415; Q5103

== ENCOUNTER → 2024-10-21 | Outpatient (CLI) | payer OTHER | LOC: M WHC 08:57 | PROVIDERS: ATTEND Family Medicine | DX: Z12.31 Encounter for screening mammogram for malignant neoplasm of breast (principal); R92.313 Mammographic fatty tissue density, bilateral breasts ==

== ENCOUNTER 2024-11-20 07:22 | Outpatient (CLI) | payer OTHER ==
[~2024-11-20 07:22] MED LIST changes: -NS (Normal Saline) 0.9% 1,000 ML IV SCH
== END 2024-11-20 10:45 | disposition home or self-care (01) ==
LOC: M LAB 07:22
PROVIDERS: ATTEND Physician Assistant Medical
DX: K51.50 Left sided colitis without complications (principal)

== ENCOUNTER → 2024-11-20 | Outpatient (CLI) | payer OTHER ==
[~2024-11-20] VITALS: Ht 154.9 cm; Wt 100.0 kg
[~2024-11-20] MED LIST changes: +LEVO200C2 PO; +NS (Normal Saline) 0.9% 1,000 ML IV SCH
[2024-11-20 07:59] VITALS: BP 126/76; O2SAT 97
[2024-11-20] MEDS: ACETAMINOPHEN 650MG PO PRIOR TO INFUSION PO ONE (08:08)
[2024-11-20] MEDS: diphenhydrAMINE 25MG PO PRIOR TO INFUSION PO ONE (08:09)
[2024-11-20] MEDS: INFLIXIMAB BIOSIMILAR 500 MG in NS 200 ML IV ONE (08:40)
[2024-11-20 10:40] VITALS: BP 115/66; O2SAT 99
== END ==
LOC: M INFU 07:14
PROVIDERS: ATTEND Internal Medicine Gastroenterology
DX: K51.90 Ulcerative colitis, unspecified, without complications (principal); Z91.010 Allergy to peanuts; Z91.013 Allergy to seafood; Z88.0 Allergy status to penicillin
CPT/HCPCS: 36592; 96413; 96415; Q5103

== ENCOUNTER 2024-11-30 09:45 | Day surgery (SDC) | payer OTHER ==
[~2024-11-30] VITALS: Ht 154.9 cm; Wt 109.3 kg
[2024-11-30 11:13] VITALS: TEMP 96.3
[2024-11-30 11:30] VITALS: BP 113/71; O2SAT 96
== END 2024-11-30 11:35 | disposition home or self-care (01) ==
LOC: M OPP 09:45
PROVIDERS: ATTEND Internal Medicine Gastroenterology
DX: K51.30 Ulcerative (chronic) rectosigmoiditis without complications (principal); K51.50 Left sided colitis without complications; K64.8 Other hemorrhoids; R10.11 Right upper quadrant pain; R10.13 Epigastric pain; Z91.013 Allergy to seafood; Z91.018 Allergy to other foods; Z88.0 Allergy status to penicillin; Z79.899 Other long term (current) drug therapy; Z87.891 Personal history of nicotine dependence

== ENCOUNTER → 2025-01-08 | Outpatient (CLI) | payer OTHER ==
[2025-01-08 11:25] LABS: BASO # 0.1 10^3/uL (0.0-0.2); BASO % 1.1 % (0.0-1.0); EOS # 0.2 10^3/uL (0.0-0.5); EOS % 2.8 % (0.0-3.0); LYMPH # 1.6 10^3/uL (1.5-5.0); LYMPH % 27.7 % (24.0-44.0); MONO # 0.4 10^3/uL (0.0-0.8); MONO % 6.6 % (2.0-8.0); NEUTROPHILS # 3.5 10^3/uL (1.5-8.5); NEUTROPHILS % 61.4 % (36.0-66.0); PLATELET COUNT, AUTOMATED 336 10^3/uL (150-450)
[2025-01-08 11:55] LABS: ALT/SGPT 23 U/L (7.0-40); AST/SGOT 28 U/L (<34); CALCIUM LEVEL 9.3 MG/DL (8.3-10.6); CARBON DIOXIDE LEVEL 30 MMOL/L (20-31); CHLORIDE LEVEL 102 MMOL/L (98-107); CHOLESTEROL LEVEL 173 MG/DL (<200); CHOLESTEROL RISK RATIO 2.59 (<5); CREATININE FOR GFR 0.70 MG/DL (0.55-1.30); GLOMERULAR FILTRATION RATE > 90.0 (>45); LDL CHOLESTEROL 80.9 MG/DL (<100); NON-HDL-C 106.3 MG/DL; POTASSIUM SERUM 3.7 MMOL/L (3.5-5.1); SODIUM LEVEL 140 MMOL/L (136-145); TRIGLYCERIDES LEVEL 127 MG/DL (<150)
[2025-01-08 11:58] LABS: FREE T4 1.60 NG/DL (0.89-1.76)
== END ==
LOC: M PLALAB 09:18
PROVIDERS: ATTEND Family Medicine
DX: Z00.00 Encounter for general adult medical examination without abnormal findings (principal)

== ENCOUNTER → 2025-01-08 | Outpatient (REF) | payer OTHER | LOC: M SFHCPLAZ 09:09 | PROVIDERS: ATTEND Family Medicine | DX: Z53.9 Procedure and treatment not carried out, unspecified reason (principal) ==

== ENCOUNTER → 2025-01-09 | Outpatient (REF) | payer OTHER | LOC: M SFHCPLAZ 15:35 | PROVIDERS: ATTEND Family Medicine | DX: D64.9 Anemia, unspecified (principal); Z53.9 Procedure and treatment not carried out, unspecified reason ==

== ENCOUNTER 2025-01-15 07:29 | Outpatient (CLI) | payer OTHER ==
[~2025-01-15] VITALS: Ht 154.9 cm; Wt 95.5 kg
[2025-01-15] MEDS ORDERED: NS (Normal Saline) 0.9% 1,000 ML IV SCH ×2 (07:30)
[2025-01-15 07:43] VITALS: BP 119/59; O2SAT 98
[2025-01-15] MEDS: diphenhydrAMINE 25MG PO PRIOR TO INFUSION PO ONE (07:44)
[2025-01-15] MEDS: INFLIXIMAB BIOSIMILAR 500 MG in NS 200 ML IV ONE (08:15)
[2025-01-15] MEDS: ACETAMINOPHEN 650MG PO PRIOR TO INFUSION PO ONE (08:24)
[2025-01-15 09:04] VITALS: BP 106/57; O2SAT 98
[2025-01-15 10:15] VITALS: BP 113/68; O2SAT 99
== END 2025-01-15 10:15 ==
LOC: M INFU 07:29
PROVIDERS: ATTEND Internal Medicine Gastroenterology
DX: K51.90 Ulcerative colitis, unspecified, without complications (principal); Z91.010 Allergy to peanuts; Z91.013 Allergy to seafood; Z88.0 Allergy status to penicillin
CPT/HCPCS: 96413; 96415; Q5103

== ENCOUNTER → 2025-02-02 | Outpatient (CLI) | payer OTHER | LOC: M RAD 15:19 | PROVIDERS: ATTEND Family Medicine | DX: R22.9 Localized swelling, mass and lump, unspecified (principal) ==

== ENCOUNTER 2025-03-12 07:34 | Outpatient (CLI) | payer OTHER ==
[~2025-03-12] VITALS: Ht 154.9 cm; Wt 97.7 kg
[~2025-03-12 07:34] MED LIST changes: +ACETAMINOPHEN 650 MG PO ONE; +NS (Normal Saline) 0.9% 1,000 ML IV SCH
[2025-03-12 07:40] VITALS: BP 130/64; O2SAT 96
[2025-03-12] MEDS: INFLIXIMAB BIOSIMILAR 500 MG in NS 200 ML IV ONE (08:44)
[2025-03-12 10:50] VITALS: BP 133/72; O2SAT 96
== END 2025-03-12 10:45 | disposition home or self-care (01) ==
LOC: M INFU 07:34
PROVIDERS: ATTEND Internal Medicine Gastroenterology
DX: K51.90 Ulcerative colitis, unspecified, without complications (principal); Z88.0 Allergy status to penicillin; Z91.013 Allergy to seafood; Z91.010 Allergy to peanuts
CPT/HCPCS: 96413; 96415; Q5103